=== PATIENT | male | born 1955 | race Caucasian/White ===

== ENCOUNTER 2020-03-22 11:27 | Outpatient (REF) | payer MEDICARE, SELFPAY ==
[2020-03-22 14:06] LABS: Estimated Average Glucose 111 mg/dL; Hemoglobin A1C 148.8295 umol/L; Hemoglobin A1c % 5.5 %
[2020-03-22 14:09] LABS: Alanine Aminotransferase 30 U/L (0-40); Albumin Level 4.3 g/dL (3.5-5.0); Alkaline Phosphatase 71 U/L (39-117); Anion Gap 12 (12-20); Aspartate Amino Transferase 43 U/L (5-37); Bilirubin Total 0.5 mg/dL (0.0-1.0); Blood Urea Nitrogen 17 mg/dL (9-16); Calcium 9.1 mg/dL (8.4-10.2); Carbon Dioxide 25 mmol/L (22-29); Chloride 105 mmol/L (96-108); Cholesterol 236 mg/dL; Estimated Glomerular Filt Rate > 60; Glucose Fasting 93 mg/dL (60-99); HDL Cholesterol 44 mg/dL; LDL Cholesterol Calculated 166 mg/dl; Potassium 4.5 mmol/L (3.3-5.1); Sodium 137 mmol/L (135-145); Total Protein 7.2 g/dL (6.5-8.0); Triglycerides 132 mg/dL
[2020-03-22 14:30] LABS: TSH reflex Free T4 0.87 uIU/mL (0.32-4.0)
[2020-03-25 13:28] LABS: Carbohydrate Antigen 19-9 4 U/mL (<34)
== END 2020-03-22 11:28 | disposition home or self-care (01) ==
LOC: HO.LAB 11:27
PROVIDERS: Visit Provider Physician Assistant
DX: E78.2 Mixed hyperlipidemia (principal); Z13.1 Encounter for screening for diabetes mellitus; Z12.5 Encounter for screening for malignant neoplasm of prostate; Z80.0 Family history of malignant neoplasm of digestive organs
CPT/HCPCS: 36415; 80053; 80061; 83036; 84153; 84443; 86301

== ENCOUNTER → 2020-05-14 08:38 | Outpatient (BNVA) | payer MEDICARE, SELFPAY | PROVIDERS: PCP Physician Assistant; Visit Provider Nurse Practitioner | DX: Z01.818 Encounter for other preprocedural examination (principal); Z86.010 Personal history of colon polyps | CPT/HCPCS: Q3014 ==

== ENCOUNTER 2020-10-22 09:33 | Day surgery (SDC) | payer MEDICARE, SELFPAY ==
--- NOTE | 2020-10-18 13:32 | HO.ANESPROP2 ---
Documented by User: Yvonne Ruelas NP 10/18/20 13:33 HPI - Anesthesia Eval Consult details Narrative: 65yo M for Colonoscopy PMFSH Active Problems Active Problems: All Active Problems (Updated 10/15/20 @ 14:58 by Prachi Sánchez, [place]) Annual physical exam (Acute) HLD (hyperlipidemia) (Acute) Screening for diabetes mellitus (DM) (Acute) Colon cancer screening (Acute) Former smoker (Acute) Family history of pancreatic cancer (Acute) History of colon polyps (Acute) Annual physical exam (Acute) Allergic asthma (Acute) Obese (Acute) Past Medical History Medical History Hyperlipidemia Mild intermittent asthma Family History Family History Father Heart problem, Onset Age: 65 Mother Diabetes Sister Pancreatic cancer Brother Pancreatic cancer Surgical History Surgical History Hx of colonoscopy (~2000) Hx of endoscopy (~2000) [place] teeth extracted Social History Social History Housing: House Alcohol intake: former Patient Tobacco Use Status: Never used Tobacco e-Cigarette/Vaping Use: Never Used Second Hand Smoke Exposure: No Use of substances other than those prescribed or required for medical reasons: Yes Substance Use Type: Marijuana Have you been hit, kicked, punched, or otherwise hurt by someone within the past year? 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 Meds Allergies Allergy/AdvReac Type Severity Reaction Status Date / Time nut - unspecified Allergy Severe Anaphylaxis Verified 09/19/20 14:14 Penicillins Allergy Severe Unknown Verified 09/19/20 14:14 Exam Exam Date and Time: October 18, 2020 1332 Assessment and Plan Assessment Anesthesia Assessment: Chart Reviewed Documented by User: Mary Alvarze MD 10/22/20 11:32 PMFSH Past Medical History Medical History Hyperlipidemia Mild intermittent asthma Family History Family History Father Heart problem, Onset Age: 65 Mother Diabetes Sister Pancreatic cancer Brother Pancreatic cancer Surgical History Surgical History Hx of colonoscopy (~2000) Hx of endoscopy (~2000) [place] teeth extracted History of Problems with Anesthesia: No Social History Social History Housing: House Alcohol intake: former Patient Tobacco Use Status: Never used Tobacco e-Cigarette/Vaping Use: Never Used Second Hand Smoke Exposure: No Use of substances other than those prescribed or required for medical reasons: Yes Substance Use Type: Marijuana Have you been hit, kicked, punched, or otherwise hurt by someone within the past year? 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 Meds Allergies Allergy/AdvReac Type Severity Reaction Status Date / Time nut - unspecified Allergy Severe Anaphylaxis Verified 09/19/20 14:14 Penicillins Allergy Severe Unknown Verified 09/19/20 14:14 Exam Airway Mallampati Class: II TM Dist: >3cm Neck ROM: Full Loose/Missing/Broken Teeth: No Heart: RRR Lungs: CTA Assessment and Plan Assessment Anesthesia Assessment: Anesthesia Plan Discussed Final Anesthetic Review History of Problems with Anesthesia: No NPO: Yes ASA Class: II Final Preanesthetic Review: Meds/Allgs Chart Reviewed, Consent Obtained/Reviewed and Anes Risks/Benef Reviewed Patient Risk: Low Procedure Risk: Low Anesthetic Plan Anesthetic Plan: MAC: Disposition: Standard PACU
--- NOTE | 2020-10-22 | ECG_ITS ---
Test Reason : PRE OP Blood Pressure : / mmHG Vent. Rate : 066 BPM Atrial Rate : 066 BPM P-R Int : 204 ms QRS Dur : 156 ms QT Int : 470 ms P-R-T Axes : 071 013 066 degrees QTc Int : 492 ms Normal sinus rhythm Left bundle branch block Abnormal ECG No previous ECGs available Referred By: Mary Alvarez Electronically Signed By:LATRICIA NICOLE
--- NOTE | 2020-10-22 11:00 | P.HPSUR_ITS ---
Pre-Procedural Eval Section A Date of Service: 10/22/20 The patient is an INPATIENT: No The History & Physical has been completed within 30 days and I have reviewed it.: No Section B Chief Complaint: Screening Details of Present Illness: colon cancer screening, hx of colon polyps Relevant Family History (Specify if Yes): Yes Relevant Social History: Tobacco Use (former smoker) Present Medications: see Short Stay Collaborative assessment Medical History: Significant History (Hyperlipidemia) History of Previous Operations: Relevant previous surgery/procedure and date(s) (Hx of colonoscopy (~2000) Hx of endoscopy (~2000) [place] teeth extracted) Allergies: Allergies Allergy/AdvReac Type Severity Reaction Status Date / Time nut - unspecified Allergy Severe Anaphylaxis Verified 09/19/20 14:14 Penicillins Allergy Severe Unknown Verified 09/19/20 14:14 Review of Systems Sugical H&P ROS: Negative: Constitution, Cardiovascular, Respiratory and Gastrointestinal Exam Surgical H&P Exam: Normal: Heart, Normal: Lungs, Normal: Extremities and Normal: Abdomen Plan Diagnosis/Plan: Unchanged I have reviewed the history and physical and performed a pertinent physical examination on my patient. No changes have occurred unless specified.
--- NOTE | 2020-10-22 11:01 | PM.OP ---
Brief Operative Note Date of Service: 10/22/20 Pre-op diagnosis: Colon cancer screening, history of colon polyps Post-op diagnosis: other (Colon polyps, diverticulosis, hemorrhoids) Procedure: COLONOSCOPY TILL CECUM WITH SNARE POLYPECTOMY Consent: Indications for the procedure and potential complications of bleeding, perforation, reaction to medications and missed diagnosis were discussed with the patient and informed consent was obtained. Instrument: Olympus PCF H 190 L variable stiffness pediatric colonoscope Monitoring: Vital signs and clinical assessment, intermittent blood pressure monitoring, continuous EKG monitoring, Pulse oximetry and Carbon Dioxide monitoring were done throughout the procedure. Colon withdrawl time was 22 minutes. Procedure: The patient was placed in the left lateral decubitis position and pre-procedure medications were administered. After a digital rectal examination of the ano-rectum, the video colonoscope was inserted into the rectum and advanced through the colon to the cecum. The colonoscope was slowly withdrawn in a retrograde panoramic fashion and the colon mucosa was carefully examined including a retroflexed view of the rectum. Findings and interventions are described below. Procedure Difficulty: Without difficulty Findings: Terminal Ileum: Not evaluated Cecum: Normal Ascending Colon: A 9-10 mm sessile polyp removed with a cold snare - polyp was not retrieved Transverse Colon: A 12-15 mm sessile polyp removed with a hot snare. Descending Colon: Moderate diverticulosis Sigmoid Colon: A 10-12 mm sessile polyp removed with a hot snare. Severe diverticulosis with luminal narrowing Rectum: Normal Ano-rectum: Small internal hemorrhoids Colon preparation: Good Impression and Post Procedure Diagnosis: Colonoscopy Findings: Three medium sized polyps removed - 1 polyp was not retrieved Moderate to severe diverticulosis seen in the left colon Small hemorrhoids on retroflexed exam. Plan: Await pathology results Patient has an appointment on 11/12/20 in the [facility] with Cynthia Murray NP . Repeat Colonoscopy interval based on path results - in 3 years if polyps are adenomatous and 5 years if polyps are hyperplastic due to hx of colon polyps. Above findings were reviewed with the patient and colon polyps and diverticulosis handouts were given in the discharge area Surgeon: Margy Carvajal MD Anesthesia: MAC (Aubrey aVldez PROGRAM DEVELOPMENT MANAGER & Marianne Andrade CRNA) Was an Search Specialist used for this Procedure?: Yes Search Specialist: Vicenta Berry Estimated blood loss (mL): 0 Pathology: other (a. transverse colon polyp b. sigmoid colon polyp) Condition: stable Disposition: PACU
[2020-10-22 11:02] VITALS: BP 130/72; PULSE 66; RESP 18; TEMP 36.6; O2SAT 98; BMI 28.7
[2020-10-22] MEDS: Lactated Ringers 1,000 ML 100 ML IVCONT (11:16)
--- NOTE | 2020-10-22 11:57 | P.OP_ITS ---
Operative Note Operative Note Date of Service: 10/22/20 Narrative: Pre-op diagnosis:?Colon cancer screening, history of colon polyps Post-op diagnosis:?other (Colon polyps, diverticulosis, hemorrhoids) Procedure:? COLONOSCOPY TILL CECUM WITH SNARE POLYPECTOMY Consent: Indications for the procedure and potential complications of bleeding, perforation, reaction to medications and missed diagnosis were discussed with the patient and informed consent was obtained. Instrument: Olympus PCF H 190 L variable stiffness pediatric colonoscope Monitoring: Vital signs and clinical assessment, intermittent blood pressure monitoring, continuous EKG monitoring, Pulse oximetry and Carbon Dioxide monitoring were done throughout the procedure. Colon withdrawl time was 22 minutes. Procedure: The patient was placed in the left lateral decubitis position and pre-procedure medications were administered. After a digital rectal examination of the ano-rectum, the video colonoscope was inserted into the rectum and advanced through the colon to the cecum. The colonoscope was slowly withdrawn in a retrograde panoramic fashion and the colon mucosa was carefully examined including a retroflexed view of the rectum. Findings and interventions are described below. Procedure Difficulty: Without difficulty Findings: Terminal Ileum: Not evaluated Cecum:? Normal Ascending Colon:? A 9-10 mm sessile polyp removed with a cold snare - polyp was not retrieved Transverse Colon:? A 12-15 mm sessile polyp removed with a hot snare. Descending Colon:? Moderate diverticulosis Sigmoid Colon:? A 10-12 mm sessile polyp removed with a hot snare. Severe diverticulosis with luminal narrowing Rectum:? Normal Ano-rectum:? Small internal hemorrhoids Colon preparation:? Good? Impression and Post Procedure Diagnosis: Colonoscopy Findings: Three medium sized polyps removed - 1 polyp was not retrieved Moderate to severe diverticulosis seen in the left colon Small hemorrhoids on retroflexed exam. Plan: Await pathology results Patient has an appointment on 11/12/20 in the GI Clinic with? Cynthia Murray NP? . Repeat Colonoscopy interval based on path results - in 3 years if polyps are adenomatous and 5 years if polyps are hyperplastic due to hx of colon polyps. Above findings were reviewed with the patient and colon polyps and diverticulosis handouts were given in the discharge area Surgeon:?Margy Carvajal MD Anesthesia:?MAC (Aubrey Valdez CRNA & Marianne Andrade CRNA) Was an Fitness Management Director used for this Procedure?:?Yes Fitness Management Director:?Vicenta Berry Estimated blood loss (mL):?0 Pathology:?other (a. transverse colon polyp? b. sigmoid colon polyp) Condition:?stable Disposition:?PACU
[2020-10-22 12:41] VITALS: BP 98/56; PULSE 75; RESP 18; TEMP 36.1; O2SAT 100
[2020-10-22 12:56] VITALS: BP 119/68; PULSE 70; RESP 18; TEMP 36.1; O2SAT 99
== END 2020-10-22 13:30 | disposition home or self-care (01) ==
PROVIDERS: PCP Physician Assistant; Visit Provider Internal Medicine Gastroenterology
PROC: 0DJD8ZZ Inspection of Lower Intestinal Tract, Via Natural or Artificial Opening Endoscopic (ICD-10-PCS; CPT 45378; principal; 2020-10-22 11:30)
DX: Z12.11 Encounter for screening for malignant neoplasm of colon (principal); D12.3 Benign neoplasm of transverse colon; D12.5 Benign neoplasm of sigmoid colon; K57.30 Diverticulosis of large intestine without perforation or abscess without bleeding; K64.8 Other hemorrhoids; Z86.010 Personal history of colon polyps
CPT/HCPCS: 45385; 88305; 93005

== ENCOUNTER → 2020-11-12 08:43 | Outpatient (BNVA) | payer MEDICARE, SELFPAY | PROVIDERS: PCP Physician Assistant; Visit Provider Nurse Practitioner | DX: D12.6 Benign neoplasm of colon, unspecified (principal) | CPT/HCPCS: Q3014 ==

== ENCOUNTER 2021-03-24 10:43 | Outpatient (REF) | payer MEDICARE, SELFPAY ==
[2021-03-24 11:48] LABS: Hematocrit 41.9 % (42.0-52.0); Hemoglobin 14.3 g/dl (14.0-18.0); Mean Corpuscular HGB Conc 34.1 g/dl (31.0-36.0); Mean Corpuscular Hemoglobin 30.6 pg (27.0-33.0); Mean Corpuscular Volume 89.7 fL (80.0-98.0); Mean Platelet Volume 10.2 fL (9.4-12.4); Platelet Count 243 X10*3/uL (160-400); Red Blood Count 4.67 X10*6/uL (4.60-5.80); Red Cell Distribution Width 12.1 % (11.0-16.0); White Blood Count 6.2 X10*3/uL (4.8-10.8)
[2021-03-24 13:01] LABS: Alanine Aminotransferase 33 U/L (0-40); Albumin Level 4.2 g/dL (3.5-5.0); Alkaline Phosphatase 76 U/L (39-117); Anion Gap 13 (12-20); Aspartate Amino Transferase 51 U/L (5-37); Bilirubin Total 0.9 mg/dL (0.0-1.0); Blood Urea Nitrogen 17 mg/dL (9-16); Calcium 9.4 mg/dL (8.4-10.2); Carbon Dioxide 21 mmol/L (22-29); Chloride 110 mmol/L (96-108); Cholesterol 138 mg/dL; Estimated Glomerular Filt Rate > 60; Glucose Fasting 106 mg/dL (60-99); HDL Cholesterol 38 mg/dL; LDL Cholesterol Calculated 86 mg/dl; Potassium 4.5 mmol/L (3.3-5.1); Sodium 139 mmol/L (135-145); Triglycerides 71 mg/dL
[2021-03-24 13:20] LABS: Prostate Specific Antigen Scr 1.16 ng/mL (<0.05-4.0); TSH reflex Free T4 1.03 uIU/mL (0.32-4.0)
== END 2021-03-24 10:44 | disposition home or self-care (01) ==
LOC: HO.LAB 10:43
PROVIDERS: PCP Physician Assistant; Visit Provider Physician Assistant
DX: Z12.5 Encounter for screening for malignant neoplasm of prostate (principal); E78.2 Mixed hyperlipidemia; I10 Essential (primary) hypertension
CPT/HCPCS: 36415; 80053; 80061; 84153; 84443; 85027

== ENCOUNTER 2022-11-04 10:08 | Outpatient (REF) | payer MEDICARE, SELFPAY ==
[2022-11-04 10:30] LABS: Hematocrit 41.9 % (42.0-52.0); Hemoglobin 14.5 g/dl (14.0-18.0); Mean Corpuscular HGB Conc 34.6 g/dl (31.0-36.0); Mean Corpuscular Hemoglobin 30.8 pg (27.0-33.0); Mean Platelet Volume 9.2 fL (9.4-12.4); Platelet Count 238 X10*3/uL (160-400); Red Blood Count 4.71 X10*6/uL (4.60-5.80); Red Cell Distribution Width 12.4 % (11.0-16.0); White Blood Count 6.3 X10*3/uL (4.8-10.8)
[2022-11-04 11:30] LABS: Alanine Aminotransferase 23 U/L (0-40); Albumin Level 4.2 g/dL (3.5-5.0); Alkaline Phosphatase 86 U/L (39-117); Anion Gap 13 (12-20); Aspartate Amino Transferase 41 U/L (5-37); Bilirubin Total 0.6 mg/dL (0.0-1.0); Blood Urea Nitrogen 15 mg/dL (9-16); Calcium 9.4 mg/dL (8.4-10.2); Carbon Dioxide 24 mmol/L (22-29); Chloride 108 mmol/L (96-108); Cholesterol 128 mg/dL (<200); Estimated Glomerular Filt Rate > 60; Glucose Fasting 116 mg/dL (60-99); HDL Cholesterol 45 mg/dL (>40); LDL Cholesterol Calculated 71 mg/dL (<100); Potassium 4.5 mmol/L (3.3-5.1); Sodium 140 mmol/L (135-145); Total Protein 7.1 g/dL (6.5-8.0); Triglycerides 60 mg/dL (<150)
[2022-11-04 11:39] LABS: Prostate Specific Antigen Scr 1.56 ng/mL (<0.05-4.0)
== END 2022-11-04 10:09 | disposition home or self-care (01) ==
LOC: HO.LAB 10:08
PROVIDERS: PCP Physician Assistant; Visit Provider Physician Assistant
DX: Z12.5 Encounter for screening for malignant neoplasm of prostate (principal); E78.2 Mixed hyperlipidemia
CPT/HCPCS: 36415; 80053; 80061; 84153; 85027

== ENCOUNTER 2022-11-10 10:34 | Outpatient (AMB) | payer MEDICARE, SELFPAY ==
--- NOTE | 2022-11-10 10:35 | MHC.PC.OV ---
Vital Signs 11/10/22 10:39 Height 5 ft 10 in Weight 211 lb BMI 30.3 BP 124/72 Blood Pressure Location Lt brachial Position Sitting Respiration 17 Pulse 70 Pulse Source Pulse Oximeter Pulse Oximetry (%) 98 Oxygen Delivery Method Room Air Intake Visit Reasons: PE Intake Note: Patient is here today for a physical. Business Development Officer Required: No Accompanied by: Self / Same As Patient Allergies nut - unspecified Allergy (Severe, Verified 11/10/22 10:59) Anaphylaxis Penicillins Allergy (Severe, Verified 11/10/22 10:59) Unknown Medication List - Last Reconciled 11/10/22 by Anthony Mercado PA-C albuterol sulfate 90 mcg/actuation 2 puffs inhalation Q6H PRN atorvastatin 40 mg PO DAILY 90 days Tobacco use date assessed: 11/10/22 HPI PE HPI Details Patient is a 67-year-old male here today for annual physical Patient has a past medical history significant for former smoker ( 16 years) quite in 1988, hyperlipidemia and is on statin therapy. Had myalgias with 80mg? atorvastatin though this reduced to when he reduced his dose to 40 mg. Concerns--> reports having chest dyscomforts at rest. He does report some relief after he uses the restroom. He reports he has been under lot more stress as of late as he is taking care of his elderly sick mother. He relates his chest discomfort to his diverticular disease as he does report some relief of his chest discomforts at 3 goes to the bathroom. .. HLD:? Patient's most l recent lipid panel showing much improved lipid.? Has been unable to tolerate statin higher than 40 mg.? Will continue to follow lipid panel.? He will continue to work on lifestyle and the current dose of atorvastatin 40 mg. ?tubular adenoma of colon:? did colonoscopy in 2020 found to have tubular adenoma polyp need repeat 3 years. Has family history of GI malignancy (pancreatic cancer). Patient's CA 19 9 was not elevated in 2020 .. VAccine: UTd with COVID vaccine, pneumonia, tetanus and shingles vaccine. He is considering new shingles vaccine Laboratory Tests 03/24/21 11/04/22 11/04/22 Unknown 10:17 10:17 Fasting Glucose 106 H 116 H LDL Cholesterol, C alc 71 PFSH Medical History Mild intermittent asthma Hyperlipidemia Surgical History Hx of endoscopy (~2000) Hx of colonoscopy (~2000) [place] teeth extracted Family History Father Heart problem, Onset Age: 65 Mother Diabetes Sister Pancreatic cancer Brother Pancreatic cancer Social History Housing: House Alcohol intake: former Patient Tobacco Use Status: Never used Tobacco e-Cigarette/Vaping Use: Never Used Second Hand Smoke Exposure: No Substance Use Type: Marijuana service: No Current occupational status: retired 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 1. Little interest or pleasure in doing things: several days 2. Feeling down, depressed, or hopeless: several days 3. Trouble falling or staying asleep, or sleeping too much: more than half the days 4. Feeling tired or having little energy: more than half the days 5. Poor appetite or overeating: more than half the days 6. Feeling bad about yourself - or that you are a failure or have let yourself or your family down: more than half the days 7. Trouble concentrating on things, such as reading the newspaper or watching television: several days 8. Moving or speaking so slowly that other people could have noticed. Or the opposite - being so fidgety or restless that you have been moving around a lot more than usual: not at all 9. Thoughts that you would be better off or of hurting yourself in some way: not at all Total score: 11 41199 - PHQ-9 Billing: Yes Source: Developed by Drs. John Peters, Annia Esquivel, Wan Tobin and colleagues, with an educational nasir from [employer]. Thrive Questionnaire Date Thrive assessed: 11/10/22 I am a: Patient What is your living situation today?: I have a steady place to live Within the past 12 months, did the food you bought not last and you didn't have the money to get more?: Never true Within the past 12 months, did you worry whether your food would run out before you got money to buy more?: Never true Do you have trouble paying for medicines?: No Do you have trouble getting transportation to medical appointments?: No Do you have trouble paying your heating and electricity bill?: No Do you have trouble taking care of your child, family member or friend?: No Do you have trouble with day-to-day activities such as bathing, preparing meals, shopping, managing finances, etc.?: No Are you currently unemployed and looking for a job?: No Are you interested in more education?: No Please select the resources that you would like help with: None Currently or been in a relationship where the following occur: no concerns reported AUDIT C Alcohol Use Questionnaire (AUDIT-C) 1. How often do you have a drink containing alcohol?: Never 3. How often do you have six or more drinks on one occasion?: Never Total Score: 0 TIMUR-7 AMB Questionnaire TIMUR-7 Date TIMUR - 7 assessed: 11/10/22 Feeling nervous, anxious, or on edge: 1 = Several days Not being able to stop or control worryin = Not at all Worrying too much about different things: 1 = Several days Trouble relaxin = Several days Being so restless that it is hard to sit still: 0 = Not at all Becoming easily annoyed or irritable: 1 = Several days Feeling afraid as if something awful might happen: 1 = Several days Total TIMUR-7 score (0-4 normal; 5-9 mild; 10-14 moderate; 15-21 severe): 5 Source: Developed by Drs. John Peters, Annia Esquivel, Wan Tobin and colleagues, with an educational nasir from [employer]. TIMUR-7 Assessment Billing TIMUR-7 Assessment Tool: TIMUR-7 Assessment 07302 Physical exam (Primary Care) Vital Signs: Last Vital Signs Pulse 70 11/10/22 10:39 Resp 17 11/10/22 10:39 BP 124/72 11/10/22 10:39 Pulse Ox 98 11/10/22 10:39 Oxygen Delivery Method Room Air 11/10/22 10:39 BMI result Body Mass Index 30.3 BMI Assessment/Plan discussion: High Tobacco/Smoking Status: Tobacco use Status Tobacco use date assessed 11/10/22 11/10/22 10:48 Patient Tobacco Use Status Never used Tobacco 11/10/22 10:37 e-Cigarette/Vaping Use Never Used 11/10/22 10:37 PHQ-9: PHQ-9 Score PHQ-9: Total score 11 11/10/22 11:08 Thrive Assessment: Date of Thrive Assessment Date Thrive assessed 11/10/22 11/10/22 10:48 Currently or been in a relationship where the following occur: no concerns reported Const Other: obese Assessment and Plan Assessment & Plan (1) Annual physical exam: Code(s): Z00.00 - Encounter for general adult medical examination without abnormal findings (2) HLD (hyperlipidemia): Code(s): E78.5 - Hyperlipidemia, unspecified Qualifiers: Hyperlipidemia type: mixed hyperlipidemia Qualified Code(s): E78.2 - Mixed hyperlipidemia Plan: Patient's most recent lipid panel showing excellent control over his total cholesterol and LDL. Will continue on current dose of statin therapy. Goal LDL is to remain below 130 (3) Chest discomfort: Code(s): R07.89 - Other chest pain Plan: As per HPI patient does report some chest tightness and pain on random occasions. Does report some shortness of breath on exertion lately will send for cardiac stress test to evaluate for cardiac ischemia on physical exertion. (4) Tubular adenoma of colon: Comment: 2020 scope 3 quite large repeat 3 years Code(s): D12.6 - Benign neoplasm of colon, unspecified (5) Obese: Code(s): E66.9 - Obesity, unspecified Qualifiers: Body mass index: BMI 30.0-30.9 Obesity classification: adult class 1 (BMI 30 - 34.9) Obesity type: due to excess calories Serious obesity comorbidity presence: without serious comorbidity Qualified Code(s): E66.09 - Other obesity due to excess calories; Z68.30 - Body mass index [BMI] 30.0-30.9, adult Plan: Patient does understand his BMI is over 30 will work on better eating habits and trying to be more physically active to reduce his weight. Orders: Orders CA stress test Today R07.89 - Other chest pain Comprehensive [place]. Panel Fast Today E78.2 - Mixed hyperlipidemia Lipid Panel Today E78.2 - Mixed hyperlipidemia Complete Blood Count no Diff Today E78.2 - Mixed hyperlipidemia Coding Level of Care Code Est Pt Prev Care >65y(63511) Diagnoses Annual physical exam Z00.00 Mixed hyperlipidemia E78.2 Hyperlipidemia type: mixed hyperlipidemia Chest discomfort R07.89 Tubular adenoma of colon D12.6 Class 1 obesity due to excess calories without serious comorbidity with body mass index (BMI) of 30.0 to 30.9 in adult E66.09; Z68.30 Body mass index: BMI 30.0-30.9 Obesity classification: adult class 1 (BMI 30 - 34.9) Obesity type: due to excess calories Serious obesity comorbidity presence: without serious comorbidity Additional Codes TIMUR-7 Assessment Billing - TIMUR-7 Assessment Tool: TIMUR-7 Assessment [id number] ([id number])
[2022-11-10 10:39] VITALS: BP 124/72; PULSE 70; RESP 17; O2SAT 98; BMI 30.3
== END 2022-11-10 11:28 | disposition home or self-care (01) ==
PROVIDERS: Visit Provider Physician Assistant
DX: R07.89 Other chest pain (principal); E66.09 Other obesity due to excess calories; Z68.30 Body mass index [BMI] 30.0-30.9, adult; E78.2 Mixed hyperlipidemia; D12.6 Benign neoplasm of colon, unspecified
CPT/HCPCS: 99214

== ENCOUNTER → 2022-11-26 09:46 | Outpatient (REF) | payer MEDICARE, SELFPAY | LOC: HO.CARD 09:46 | PROVIDERS: PCP Physician Assistant; Visit Provider Physician Assistant | DX: Z13.89 Encounter for screening for other disorder (principal) ==

== ENCOUNTER → 2023-01-14 07:50 | Outpatient (REF) | payer MEDICARE, SELFPAY ==
--- NOTE | ~2023-01-14 | NM_ITS ---
Myocardial perfusion study Indication: EKG to evaluate for myocardial ischemia Technique: The patient was brought in for a Lexiscan perfusion study on 01/14/2023. Patient performed low-level exercise and was injected 0.4 mg of Lexiscan intravenously. Within a minute of injection, 30 mCi of sestamibi was given intravenously. Images were obtained using the SPECT gamma camera interlaced with the gating device. Images were obtained in supine position. Resting perfusion study was performed on 01/18/2023. Patient was administered 30 mCi of sestamibi intravenously at rest. Images were then obtained in supine position. Images obtained with and without CT attenuation. Total DLP 90 mGy-cm. Images were processed with the software and compared side to side in short axis, horizontal long axis and vertical long axis views. Findings: Stress and rest perfusion studies were suboptimal due to intense subdiaphragmatic uptake interfering with inferior wall uptake The stress perfusion study showed non attenuated images show mildly to moderately reduced uptake in the inferior inferoseptal wall of the LV myocardium. Remainder of the LV myocardium is normally perfused. Attenuation corrected images are suboptimal due to diffusely reduced uptake related to subdiaphragmatic uptake. The gated study is suboptimal due to tracking of subdiaphragmatic activity. LV cavity is normal size. Resting study shows no change in perfusion pattern compared to stress perfusion study. Gating at rest reveals normal systolic wall motion with ejection fraction at 56%. The findings are consistent with overall suboptimal study to evaluate for inferior wall defect subdiaphragmatic activity. Anterior and lateral wall appeared to have normal perfusion with stress. NM/NM aaron perf SPECT rest & str Impression: 1. Myocardial perfusion imaging study shows suboptimal study related for evaluation of the inferior and septal wall 2. Gated LVEF is 56% at rest 3. Transient ischemic dilatation not seen EKG nondiagnostic for ischemia
--- NOTE | 2023-01-14 07:52 | CA_ITS ---
Acquisition Time: 2023-01-14 08:03:11 Total Exercise Time: 00:02:00 Test Indications: ABN EKG Medications: SEE H Protocol: LEXISCAN Max HR: 096 BPM 63% of Pred: 151 BPM Max BP: 140/072 mmHG Max Work Load: 1.0 METS Pharmacological stress test with Lexiscan injection, while sitting, without anginal symptoms, without arrythmia, with normotensive response to injection, with nondiagnostic EKG for ischemia. In recovery he became presyncopal which was treated with supine position, IV NS wide open. Lexiscan reversed with Aminophylline 75mg IVP. Symptoms resolved. He did not become hypotensive or bradycardic.He recieved 400 cc NS. He was recovered for over 15 minutes. Nuclear images pending. Test reviewed with Dr López. IV line in place. Assisted to nuclear medicine department for his images. Message sent to his PCP, requested order for echocardiogram. Referred By: Anthony Mercado Overread By: REY VIZCARRA
--- NOTE | 2023-01-14 09:34 | CA_ITS ---
Transthoracic Echocardiogram Patient (Last, First, Middle): Patricio Gale, Gender: Male Date of : 1955 Age: 67 Procedure Date: 01/14/2023 Procedure Type: Transthoracic Echocardiogram Location: OP Height: 177.8 cm Weight: 90.72 kg BSA: 2.09 m2 Heart Rate: 64 bpm BP: 140 / 85 mmHg Medical Record Librarians Teacher: FANTASMA De Oliveira MD: Anthony Mercado PA-C Model Maker Plastic: Dago López MD Symptoms: I51.7 - Cardiomegaly Study Quality: Adequate/w Contrast ECG Rhythm: Sinus Conclusions: - 1. Moderate LV systolic dysfunction with LVEF of 35-40% with impaired relaxation filling pattern 2. Normal cardiac valvular Dopplers 3. Upper limits of normal ascending aortic size 4. No gross pericardial effusion Findings Procedure Information Contrast agent, definity, is being given per protocol without apparent complications. Left Ventricle The left ventricular systolic function is moderately decreased. The visually estimated ejection fraction is between 35-40%. There is moderate global hypokinesis. There is paradoxical septal motion consistent with a left bundle branch block. Spectral Doppler is indicative of an impaired relaxation filling pattern. E/E prime ratio is between 8 and 15 consistent with indeterminate filling pressures. Right Ventricle Normal right ventricular cavity size and systolic function. Atria Both atria are normal in size. There is no evidence of interatrial shunt. Aortic Valve Normal aortic valve structure and function. There is no aortic valve stenosis. There is no aortic valve regurgitation. Mitral Valve Normal mitral valve structure and function. There is trace mitral valve regurgitation. There is no mitral valve stenosis. Pulmonic Valve The pulmonic valve is likely normal. Tricuspid Valve There is trace tricuspid valve regurgitation. Tricuspid regurgitation envelope is inadequate for calculation of right ventricular systolic pressure. Normal right atrial pressure. Great Vessels The pulmonary artery was not well visualized. Venous The inferior vena cava is normal in size and collapses greater than 50% with inspiration. Pericardium/Pleural There is no evidence of pericardial effusion. Prior Study Comparison No prior study available for comparison. Measurements 2D Linear Measurements IVSd: 1.05 0.6-0.9/0.6-1.0 cm LVIDd: 4.94 3.9-5.3/4.2-5.9 cm LVIDd Index: 2.36 2.4-3.2/2.2-3.1 cm/m2 LVIDs: 3.53 2.0-3.6 cm LVPWd: 1.08 0.7-1.1 cm LA Diam: 2.90 2.7-3.8/3.0-4.0 cm LAIDs Index: 1.39 1.5-2.3 cm/m2 LV Mass: 242.15 67-162/88-224 g LV Mass Index: 115.86 43-95/49-115 g/m2 LVOT Diam: 1.90 3.0+(-)1.3 cm 2D Systolic Function EF 4C: 36.50 >55% EF 2C: 40.80 >55% EF BiP: 38.90 >55% Mitral Valve MV Pk E: 0.69 MV PK A: 0.86 MV Decel Time: 155.00 E/A: 0.80 E'Lateral: 8.16 E'Medial: 4.57 E/E' Med: 15.20 E/E' Lat: 8.50 PHT: 45.00 MVA PHT: 4.89 Decel [place]: 4.48 Aortic Valve AoV Pk El: 1.65 AoV Mn El: 1.11 AoV VTI: 0.35 AoV Pk Grad: 11.00 Aov Mn Grad: 6.00 HORTENSIA Cont.VTI: 2.14 LVOT LVOT Pk El: 1.36 LVOT Mn El: 0.89 LVOT VTI: 0.27 LVOT Pk Grad: 7.00 LVOT Mn Grad: 4.00 LVOT Diam: 1.90 LVOT Area: 2.84 Diastolic Function MV Pk E: 0.69 MV Pk A: 0.86 E/A: 0.80 E'Medial: 4.57 E/E' Med: 15.20 E' Laterial: 8.16 E/E' Lat: 8.50 Right Ventricle TAPSE (mm): 23.80 TVS' El: 11.70 Tricuspid Valve TR Pk El: 1.14 TR Pk Grad: 5.00 RA Press: 3.00 RVSP: 8.00 Great Vessels Aorta Sinus of Valsalva: 3.80 2.0-3.5 cm Ao Asc: 3.60 2.1-3.4 cm Pulmonary Valve PV Pk El: 1.18 Peak PV Grad: 6.00 Updated in Other Vendor System with Status of Final Dago López MD electronically signed on 01/14/2023 11:09:10 AM with status of Final
== END ==
LOC: HO.CARD 07:50
PROVIDERS: PCP Physician Assistant; Visit Provider Physician Assistant
DX: R07.89 Other chest pain (principal); I51.7 Cardiomegaly; R55 Syncope and collapse
CPT/HCPCS: 78452; 93017; 93306; A9500; J0280; J2785; Q9957

== ENCOUNTER → 2023-01-14 09:34 | Outpatient (BNV) | payer MEDICARE, SELFPAY | PROVIDERS: PCP Physician Assistant; Visit Provider Internal Medicine Cardiovascular Disease | DX: I51.7 Cardiomegaly (principal); R94.31 Abnormal electrocardiogram [ECG] [EKG] | CPT/HCPCS: 78452; 93016; 93018; 93306 ==

== ENCOUNTER 2023-01-19 13:24 | Outpatient (AMB) | payer MEDICARE, SELFPAY ==
[2023-01-19 13:33] VITALS: BP 120/70; PULSE 77; BMI 30.2
--- NOTE | 2023-01-19 13:33 | MHC.OFFVIS ---
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 He had a recent echocardiogram and stress test which were abnormal and hence he has been referred here. Patient denies any history of coronary disease or myocardial infarction or cardiomyopathy or in fact any other cardiac issues in the past. He states he generally healthy without any major limitations. Both his brother as well as sister have been diagnosed with pancreatic cancer recently and that had given him a lot of stress. He states he used to live in [place] but then had to move locally. 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 He feels at nonspecific sensation of chest tightness but this is present essentially all the time. Not exertion. Even now, sitting in the office he states he feels that. However, when he does things like mowing his lawn he states he is okay. Sometimes he feels as though he gets asthma attacks causing shortness of breath. However, no consistent pattern of shortness of breath with exertion. 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 Cognitive needs: No Hearing needs: No Vision needs: No Review of Systems Const Denies chills, Denies daytime sleepiness, Denies fatigue, Denies fever(s), Denies frequent falls, Denies night sweats, Denies snoring, Denies weakness, Denies weight gain and Denies weight loss Eyes Denies loss of vision ENT Denies dizziness and Denies hearing loss Card Denies chest pain with activity, Denies syncope, Denies edema, Denies claudication, Denies leg edema, Denies lightheadedness, Denies palpitations, Denies dyspnea and Denies orthopnea Resp Denies cough, Denies excessive phlegm production, Denies dyspnea, Denies snoring and Denies wheezing GI Denies abdominal pain, Denies hematochezia, Denies change in bowel habits, Denies change in stool character, Denies heartburn, Denies nausea and Denies vomiting Denies hematuria, Denies dysuria and Denies urinary frequency Musc Denies arthralgias, Denies muscle weakness, Denies numbness and Denies tingling Skin/Breast Denies nail changes and Denies rash Neuro Denies Abnormal speech present, Denies dizziness, Denies syncope, Denies frequent falls, Denies loss of vision, Denies memory loss, Denies numbness, Denies tingling and Denies weakness Psych Denies depression and Denies memory loss Endo Denies fatigue and Denies palpitations Aller/Immun Denies wheezing Physical Exam Vital Signs: Last Vital Signs Pulse 77 01/19/23 13:33 BP 120/70 01/19/23 13:33 BMI result Body Mass Index 30.2 Const General: comfortable and no acute distress Orientation/consciousness: patient oriented x3 HEENT Other: Unremarkable Head: Yes normal to inspection Neck Neck: Yes normal visual inspection Chest Chest palpation & inspection: normal inspection of the chest Resp Auscultation: clear to auscultation bilaterally Cardio Palpation: normal PMI Heart sounds: S1 normal heart sound present, S2 normal heart sound present, no gallops, no murmurs and no rubs GI Palpation (GI): Soft to palpation Back/Spine/Pelvis Other: unremarkable Skin General skin exam: no rashes or lesions noted Neuro General: patient oriented x3 Speech: No Abnormal speech present Extrem General: Yes normal to inspection Psych Mental Status: mental status grossly normal Office Procedures EKG Details: EKG with sinus rhythm with left bundle-branch block pattern at 77/Min. [id number], Complete Assessment & Plan Assessment & Plan (1) Cardiomyopathy: Code(s): I42.9 - Cardiomyopathy, unspecified (2) LBBB (left bundle branch block): Code(s): I44.7 - Left bundle-branch block, unspecified Plan Today's EKG shows sinus rhythm with left bundle-branch block pattern. A prior EKG from 2020 also shows the left bundle-branch block pattern. Hence actual time of onset is not clear. Could be chronic but we do not have any previous EKGs prior 2020. Echocardiogram with moderate LV systolic dysfunction with LVEF of 35-40%. Otherwise unremarkable. In the stress perfusion imaging study, somewhat suboptimal. Anterior/lateral wall thought to be normal but inferior/septal wall could not be assessed adequately. Findings were discussed with patient in great detail. Show him picture charts as well and explained. Clinically, he has got clear heart failure symptoms or signs. The vague chest tightness which is nonexertional is nonspecific. Recommend getting a coronary CTA to ensure there is no hemodynamically significant CAD as his stress test is suboptimal. Otherwise, no need for diuretics as there is no volume overload. Could consider Coreg/Entresto after CTA but he does run normal to lowish blood pressures. Will follow-up after testing. Orders: Orders B Type Natriuretic Peptide Today I42.9 - Cardiomyopathy, unspecified, I50.9 - Heart failure, unspecified CT Cardiac Coronary Angio Today I25.10 - Atherosclerotic heart disease of [place] coronary artery without angina pectoris, I42.9 - Cardiomyopathy, unspecified Basic Metabolic Panel Today I42.9 - Cardiomyopathy, unspecified, I50.22 - Chronic systolic (congestive) heart failure Coding Level of Care Code New Pt Level 4 (21727) Diagnoses Cardiomyopathy I42.9 LBBB (left bundle branch block) I44.7 CPT Codes EKG - CPT: 51584-[id number], Complete ([id number])
== END 2023-01-19 14:28 | disposition home or self-care (01) ==
PROVIDERS: PCP Physician Assistant; Visit Provider Internal Medicine
DX: I42.9 Cardiomyopathy, unspecified (principal); I44.7 Left bundle-branch block, unspecified
CPT/HCPCS: 93010; 99204

== ENCOUNTER → 2023-01-19 13:24 | Outpatient (BNVA) | payer MEDICARE, SELFPAY | PROVIDERS: PCP Physician Assistant; Visit Provider Internal Medicine | DX: I42.9 Cardiomyopathy, unspecified (principal); I44.7 Left bundle-branch block, unspecified | CPT/HCPCS: 93005; 99202 ==

== ENCOUNTER 2023-01-27 11:15 | Outpatient (REF) | payer MEDICARE, SELFPAY ==
[2023-01-27 12:35] LABS: B Type Natriuretic Peptide 15 pg/mL (<100)
[2023-01-27 12:45] LABS: Anion Gap 12 (12-20); Blood Urea Nitrogen 15 mg/dL (9-16); Calcium 9.7 mg/dL (8.4-10.2); Carbon Dioxide 27 mmol/L (22-29); Chloride 106 mmol/L (96-108); Estimated Glomerular Filt Rate > 60; Glucose Random 94 mg/dL (60-115); Potassium 4.1 mmol/L (3.3-5.1); Sodium 141 mmol/L (135-145)
== END 2023-01-27 11:16 | disposition home or self-care (01) ==
LOC: HO.LAB 11:15
PROVIDERS: PCP Physician Assistant; Visit Provider Internal Medicine
DX: I50.22 Chronic systolic (congestive) heart failure (principal); I42.9 Cardiomyopathy, unspecified
CPT/HCPCS: 36415; 80048; 83880

== ENCOUNTER 2023-05-03 13:00 | Outpatient (AMB) | payer MEDICARE, SELFPAY ==
--- NOTE | 2023-05-03 13:07 | A.OFFVIS_ITS ---
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 Recently seen in consultation regarding cardiomyopathy. He had a recent echocardiogram and stress test which were abnormal and hence he has been referred here. Patient denies any history of coronary disease or myocardial infarction or cardiomyopathy or in fact any other cardiac issues in the past. He states he generally healthy without any major limitations. Both his brother as well as sister had pancreatic cancer and passed and that gave him a lot of stress. He used to be in [place] but now he lives locally. Was apparently lower for most of his life but not anymore. Retired. He was getting some vague chest tightness in the past but nonexertional but today he states he feels fine. Sometimes he feels as though he gets asthma attacks causing shortness of breath. Overall, no new cardiac concerns since last seen. He is underwent coronary CTA. [facility] Medical History (Updated 05/03/23 @ 14:59 by Chicho Carlos MD) Atherosclerotic cardiovascular disease Mild intermittent asthma Hyperlipidemia Surgical History Hx of endoscopy (~2000) Hx of colonoscopy (~2000) [place] teeth extracted Family History Father Heart problem, Onset Age: 65 Mother Diabetes Sister Pancreatic cancer Brother Pancreatic cancer Social History Housing: House Alcohol intake: former Patient Tobacco Use Status: Never used Tobacco e-Cigarette/Vaping Use: Never Used Second Hand Smoke Exposure: No Substance Use Type: Marijuana service: No Current occupational status: retired 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 Cognitive needs: No Hearing needs: No Vision needs: No Review of Systems Const Denies weakness ENT Denies dizziness Card Denies chest pain, Denies chest pain with activity, Denies syncope, Denies rapid heart rate, Denies pedal edema, Denies edema, Denies leg edema, Denies lightheadedness, Denies palpitations, Denies dyspnea, Denies dyspnea on exertion and Denies orthopnea Resp Denies cough, Denies dyspnea and Denies dyspnea on exertion GI Denies hematochezia and Denies change in stool character Musc Denies abnormal gait, Denies muscle cramps, Denies muscle weakness, Denies numbness, Denies radiating pain into limb and Denies tingling Neuro Denies abnormal gait, Denies dizziness, Denies syncope, Denies numbness, Denies tingling and Denies weakness Endo Denies palpitations Physical Exam Vital Signs: Last Vital Signs Pulse 78 05/03/23 13:10 BP 120/66 05/03/23 13:10 BMI result Body Mass Index 30.1 Const General: comfortable and no acute distress Orientation/consciousness: patient oriented x3 HEENT Other: Unremarkable Head: Yes normal to inspection Neck Neck: Yes normal visual inspection Chest Chest palpation & inspection: normal inspection of the chest Resp Auscultation: clear to auscultation bilaterally Cardio Palpation: normal PMI Heart sounds: S1 normal heart sound present, S2 normal heart sound present, no gallops, no murmurs and no rubs GI Palpation (GI): Soft to palpation Back/Spine/Pelvis Other: unremarkable Skin General skin exam: no rashes or lesions noted Neuro General: patient oriented x3 Extrem General: Yes normal to inspection Psych Mental Status: mental status grossly normal Assessment & Plan Assessment & Plan (1) Cardiomyopathy: Code(s): I42.9 - Cardiomyopathy, unspecified (2) LBBB (left bundle branch block): Code(s): I44.7 - Left bundle-branch block, unspecified (3) Atherosclerotic cardiovascular disease: Code(s): I25.10 - Atherosclerotic heart disease of [place] coronary artery without angina pectoris Plan Recent EKG shows sinus rhythm with left bundle-branch block pattern. A prior EK G from 2020 also shows the left bundle-branch block pattern. Hence actual time of onset is not clear. Could be chronic but we do not have any previous EKGs prior 2020. Echocardiogram with moderate LV systolic dysfunction with LVEF of 35-40%. Otherwise unremarkable. In the stress perfusion imaging study, somewhat suboptimal. Anterior/lateral wall thought to be normal but inferior/septal wall could not be assessed adequately. Coronary calcium score showed a total score of 656. Majority in the LAD. Some left main/RCA. In the CTA, distal left main/proximal LAD calcification but less than 40% stenosis. FFR is also negative. Otherwise unremarkable. Overall, he has left bundle-branch block, cardiomyopathy, coronary disease. We discussed this in great detail. With regard to the cardiomyopathy itself, no heart failure symptoms or signs. Blood pressure is already on the lower side. May not be able to tolerate much of meds but we can try low-dose Entresto. If he can take it then check labs in a few days after that. He agrees. With regard to the coronary disease, he is already on statins. He states he can not take higher dose as he gets aches and pains. Hence try adding Zetia. Follow-up in 6 months with another echocardiogram. Orders: Orders CA echo transthoracic complete 6 Months I42.9 - Cardiomyopathy, unspecified Basic Metabolic Panel 2 Weeks I42.9 - Cardiomyopathy, unspecified Medications: New ezetimibe (Zetia) 10 mg PO DAILY 90 tabs 3RF sacubitril-valsartan 24-26 mg (Entresto) 1 tab PO BID 90 days 180 tabs 3RF I42.9 - Cardiomyopathy, unspecified Coding Level of Care Code Est Pt Level 4 (44063) Diagnoses Cardiomyopathy I42.9 LBBB (left bundle branch block) I44.7 Atherosclerotic cardiovascular disease I25.10
[2023-05-03 13:10] VITALS: BP 120/66; PULSE 78; BMI 30.1
== END 2023-05-03 13:46 | disposition home or self-care (01) ==
PROVIDERS: PCP Physician Assistant; Visit Provider Internal Medicine
DX: I42.9 Cardiomyopathy, unspecified (principal); I44.7 Left bundle-branch block, unspecified; I25.10 Atherosclerotic heart disease of native coronary artery without angina pectoris
CPT/HCPCS: 99214

== ENCOUNTER → 2023-05-03 13:00 | Outpatient (BNVA) | payer MEDICARE, SELFPAY | PROVIDERS: PCP Physician Assistant; Visit Provider Internal Medicine | DX: I42.9 Cardiomyopathy, unspecified (principal); I44.7 Left bundle-branch block, unspecified; I25.10 Atherosclerotic heart disease of native coronary artery without angina pectoris | CPT/HCPCS: 99212 ==

== ENCOUNTER 2023-05-26 10:32 | Outpatient (REF) | payer MEDICARE, SELFPAY ==
[2023-05-26 12:08] LABS: Anion Gap 11 (12-20); Blood Urea Nitrogen 18 mg/dL (9-16); Calcium 8.9 mg/dL (8.4-10.2); Carbon Dioxide 25 mmol/L (22-29); Chloride 107 mmol/L (96-108); Estimated Glomerular Filt Rate > 60; Glucose Random 100 mg/dL (60-115); Potassium 4.4 mmol/L (3.3-5.1); Sodium 139 mmol/L (135-145)
== END 2023-05-26 10:33 | disposition home or self-care (01) ==
LOC: HO.LAB 10:32
PROVIDERS: PCP Physician Assistant; Visit Provider Internal Medicine
DX: I42.9 Cardiomyopathy, unspecified (principal)
CPT/HCPCS: 36415; 80048

== ENCOUNTER → 2023-10-29 09:48 | Outpatient (REF) | payer MEDICARE, SELFPAY ==
--- NOTE | 2023-10-29 09:51 | CA_ITS ---
Transthoracic Echocardiogram Patient (Last, First, Middle): Patricio Gale, Gender: Male Date of : 1955 Age: 68 Procedure Date: 10/29/2023 Procedure Type: Transthoracic Echocardiogram Location: OP Height: 177.8 cm Weight: 95.26 kg BSA: 2.13 m2 Heart Rate: 68 bpm BP: 120 / 60 mmHg Auricular Therapist: SB Referring MD: Chicho Carlos MD Symptoms: I42.9 - Cardiomyopathy, unspecified Study Quality: Adequate ECG Rhythm: Sinus Conclusions: - Normal left ventricular cavity size. There is normal left ventricular wall thickness. The left ventricular systolic function is borderline reduced. The visually estimated ejection fraction is between 45-50%. - E/E prime ratio is between 8 and 15 consistent with indeterminate filling pressures. - Normal right ventricular cavity size and systolic function. Findings Left Ventricle Normal left ventricular cavity size. There is normal left ventricular wall thickness. The left ventricular systolic function is borderline reduced. The visually estimated ejection fraction is between 45-50%. Abnormal diastolic function is noted. Spectral Doppler is indicative of a pseudonormal filling pattern. E/E prime ratio is between 8 and 15 consistent with indeterminate filling pressures. Right Ventricle Normal right ventricular cavity size and systolic function. Atria The left atrium is normal in size. The right atrium is normal in size. Aortic Valve There is a normal trileaflet aortic valve. There is mild calcification of the aortic valve. There is no aortic valve stenosis. There is no aortic valve regurgitation. Mitral Valve The mitral valve appears normal. There is no mitral valve regurgitation. There is no mitral valve stenosis. Pulmonic Valve The pulmonic valve is likely normal. Tricuspid Valve Normal tricuspid valve structure. There is no tricuspid valve regurgitation. Tricuspid regurgitation envelope is inadequate for calculation of right ventricular systolic pressure. Normal right atrial pressure. Great Vessels All visible segments of the aorta are normal in size. The visualized portions of the pulmonary artery and branches are normal. Venous The inferior vena cava is normal in size and collapses greater than 50% with inspiration. Pericardium/Pleural There is no evidence of pericardial effusion. Prior Study Comparison Changes noted compared to prior study dated: 01/14/2023. EF 45 to 50% Measurements 2D Linear Measurements IVSd: 0.97 0.6-0.9/0.6-1.0 cm LVIDd: 4.70 3.9-5.3/4.2-5.9 cm LVIDd Index: 2.21 2.4-3.2/2.2-3.1 cm/m2 LVIDs: 3.71 2.0-3.6 cm LVPWd: 1.01 0.7-1.1 cm LA Diam: 3.20 2.7-3.8/3.0-4.0 cm LAIDs Index: 1.50 1.5-2.3 cm/m2 LV Mass: 201.75 67-162/88-224 g LV Mass Index: 94.72 43-95/49-115 g/m2 LVOT Diam: 2.10 3.0+(-)1.3 cm 2D Systolic Function EF 4C: 44.90 >55% EF 2C: 52.60 >55% EF BiP: 47.20 >55% Mitral Valve MV Pk E: 0.61 MV PK A: 0.60 MV Decel Time: 206.00 E/A: 1.00 E'Lateral: 6.74 E'Medial: 3.37 E/E' Med: 18.00 E/E' Lat: 9.00 PHT: 60.00 MVA PHT: 3.67 Decel [place]: 2.96 Aortic Valve AoV Pk El: 1.32 AoV Pk Grad: 7.00 HORTENSIA: 3.10 LVOT LVOT Pk El: 1.20 LVOT Mn El: 0.84 LVOT VTI: 0.24 LVOT Pk Grad: 6.00 LVOT Mn Grad: 4.00 LVOT Diam: 2.10 LVOT Area: 3.46 Diastolic Function MV Pk E: 0.61 MV Pk A: 0.60 E/A: 1.00 E'Medial: 3.37 E/E' Med: 18.00 E' Laterial: 6.74 E/E' Lat: 9.00 Right Ventricle TAPSE (mm): 20.30 TVS' El: 10.80 Tricuspid Valve RA Press: 3.00 Great Vessels Aorta Sinus of Valsalva: 3.70 2.0-3.5 cm Ao Asc: 3.30 2.1-3.4 cm Pulmonary Veins Pulm Vein S/D 1.20 Pulmonary Valve PV Pk El: 0.99 Peak PV Grad: 4.00 Updated in Other Vendor System with Status of Final Roderick Adal MD electronically signed on 10/31/2023 9:27:09 PM with status of Final
== END ==
LOC: HO.CARD 09:48
PROVIDERS: PCP Physician Assistant; Visit Provider Internal Medicine
DX: I42.9 Cardiomyopathy, unspecified (principal)
CPT/HCPCS: 93306

== ENCOUNTER → 2023-10-29 09:51 | Outpatient (BNV) | payer MEDICARE, SELFPAY | PROVIDERS: PCP Physician Assistant; Visit Provider Internal Medicine Cardiovascular Disease | DX: I35.8 Other nonrheumatic aortic valve disorders (principal); I51.89 Other ill-defined heart diseases | CPT/HCPCS: 93306 ==

== ENCOUNTER 2023-11-04 12:50 | Outpatient (AMB) | payer MEDICARE, SELFPAY ==
[2023-11-04 12:58] VITALS: BP 108/58; PULSE 67; BMI 30.7
--- NOTE | 2023-11-04 12:58 | A.OFFVIS_ITS ---
Vital Signs 11/04/23 12:58 Height 5 ft 10 in Weight 213 lb 13.574 oz BMI 30.7 BP 108/58 L Blood Pressure Location Lt brachial Position Sitting Pulse 67 Intake Visit Reasons: 6 mth f/up Pipelines Superintendent Required: No Accompanied by: Self / Same As Patient Allergies nut - unspecified Allergy (Severe, Verified 05/03/23 13:11) Anaphylaxis Penicillins Allergy (Severe, Verified 05/03/23 13:11) Unknown Medication List - Last Reconciled 11/04/23 by Chicho Carlos MD albuterol sulfate 90 mcg/actuation 2 puffs inhalation Q6H PRN atorvastatin 40 mg PO DAILY 90 days ezetimibe (Zetia) 10 mg PO DAILY sacubitril-valsartan 24-26 mg (Entresto) 1 tab PO BID 90 days HPI Comments Details: Patricio returns for follow-up. Originally seen in consultation regarding cardiomyopathy. Echocardiogram and stress test were abnormal and hence he was referred here. Subsequently, he underwent coronary CTA as well. Otherwise, for the most part he feels fine. Some nonspecific chest pressure but nonexertional. No other new concerns. Both his brother as well as sister had pancreatic cancer and passed. He used to be in [place] but now he lives locally. 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 [facility] Medical History (Updated 05/03/23 @ 14:59 by Chicho Carlos MD) Atherosclerotic cardiovascular disease Mild intermittent asthma Hyperlipidemia Surgical History Hx of endoscopy (~2000) Hx of colonoscopy (~2000) [place] teeth extracted Family History Father Heart problem, Onset Age: 65 Mother Diabetes Sister Pancreatic cancer Brother Pancreatic cancer Social History Housing: House Alcohol intake: former Patient Tobacco Use Status: Never used Tobacco e-Cigarette/Vaping Use: Never Used Second Hand Smoke Exposure: No Substance Use Type: Marijuana service: No Current occupational status: retired 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 Cognitive needs: No Hearing needs: No Vision needs: No Review of Systems Const Denies chills, Denies fatigue, Denies fever(s), Denies weight gain and Denies weight loss ENT Denies dizziness Card Denies chest pain, Denies leg edema, Denies lightheadedness, Denies palpitations, Reports dyspnea on exertion, Denies orthopnea and Denies other Resp Denies cough and Reports dyspnea on exertion GI Denies hematochezia and Denies change in stool character Musc Denies abnormal gait, Denies muscle weakness, Denies numbness, Denies radiating pain into limb and Denies tingling Neuro Denies abnormal gait, Denies dizziness, Denies numbness and Denies tingling Endo Denies fatigue and Denies palpitations Physical Exam Vital Signs: Last Vital Signs Pulse 67 11/04/23 12:58 BP 108/58 L 11/04/23 12:58 BMI result Body Mass Index 30.7 Const General: comfortable and no acute distress Orientation/consciousness: patient oriented x3 HEENT Other: Unremarkable Head: Yes normal to inspection Neck Neck: Yes normal visual inspection Chest Chest palpation & inspection: normal inspection of the chest Resp Auscultation: clear to auscultation bilaterally Cardio Palpation: normal PMI Heart sounds: S1 normal heart sound present, S2 normal heart sound present, no gallops, no murmurs and no rubs GI Palpation (GI): Soft to palpation Back/Spine/Pelvis Other: unremarkable Skin General skin exam: no rashes or lesions noted Neuro General: patient oriented x3 Extrem General: Yes normal to inspection Psych Mental Status: mental status grossly normal Office Procedures EKG Details: EKG with underlying sinus rhythm at 67/Min; NE prolongation to 220 millisecond; left bundle-branch block. [id number], Complete Assessment & Plan Assessment & Plan (1) Cardiomyopathy: Code(s): I42.9 - Cardiomyopathy, unspecified Category: Medical (2) LBBB (left bundle branch block): Code(s): I44.7 - Left bundle-branch block, unspecified Category: Medical (3) Atherosclerotic cardiovascular disease: Code(s): I25.10 - Atherosclerotic heart disease of [place] coronary artery without angina pectoris Category: Medical Plan Cardiac studies reviewed. Recent EKG shows sinus rhythm with left bundle-branch block pattern. A prior EKG from 2020 also shows the left bundle-branch block pattern. Hence actual time of onset is not clear. Could be chronic but we do not have any previous EKGs prior to 2021. Initial echocardiogram with moderate LV systolic dysfunction with LVEF of 35- 40%. In the repeat study, LVEF 45-50%. In the stress perfusion imaging study, somewhat suboptimal. Anterior/lateral wall thought to be normal but inferior/septal wall could not be assessed adequately. Coronary calcium score showed a total score of 656. Majority in the LAD. Some left main/RCA. In the CTA, distal left main/proximal LAD calcification but less than 40% stenosis. FFR is also negative. Otherwise unremarkable. Cardiac BNP is only 15. Overall, he has left bundle-branch block, cardiomyopathy, coronary disease. Clinically, no overt symptoms. Well compensated. With regard to the cardiomyopathy, continue Entresto. Due to conduction system disease, jerrod hold off beta-blockers. No indication for diuretics or other medications. With regard to coronary disease, continue statins and Zetia. Last LDL 71 mg/dL. Triglycerides 60 mg/dL. Can not take any higher doses of statins due to aches and pains. If no contraindications, may also take aspirin. We will see him back in 1 year with another echocardiogram. In the interim, call with concerns. Orders: Orders CA echo transthoracic complete 1 Year I42.9 - Cardiomyopathy, unspecified Coding Level of Care Code Est Pt Level 4 (69946) Diagnoses Cardiomyopathy I42.9 LBBB (left bundle branch block) I44.7 Atherosclerotic cardiovascular disease I25.10 CPT Codes EKG - CPT: 00618-[id number], Complete ([id number])
== END 2023-11-04 13:26 | disposition home or self-care (01) ==
PROVIDERS: PCP Physician Assistant; Visit Provider Internal Medicine
DX: I42.9 Cardiomyopathy, unspecified (principal); I44.7 Left bundle-branch block, unspecified; I25.10 Atherosclerotic heart disease of native coronary artery without angina pectoris
CPT/HCPCS: 93010; 99214

== ENCOUNTER → 2023-11-04 12:50 | Outpatient (BNVA) | payer MEDICARE, SELFPAY | PROVIDERS: PCP Physician Assistant; Visit Provider Internal Medicine | DX: I42.9 Cardiomyopathy, unspecified (principal); I44.7 Left bundle-branch block, unspecified; I25.10 Atherosclerotic heart disease of native coronary artery without angina pectoris | CPT/HCPCS: 93005; 99212 ==

== ENCOUNTER 2023-11-12 14:44 | Outpatient (AMB) | payer MEDICARE, SELFPAY ==
--- NOTE | 2023-11-12 14:47 | A.OFFVIS_ITS ---
Vital Signs 11/12/23 14:49 Height 5 ft 10 in Weight 216 lb 0.848 oz BMI 31.0 BP 118/60 Blood Pressure Location Rt brachial Position Sitting Pulse 77 Intake Visit Reasons: Repeat Colonoscopy Intake Note: Patricio presents to in office visit today for repeat colonoscopy screening. CC: Patient reports slight discomfort from LUQ abdomen d/t diverticulosis. Denies other GI symptoms or concerns. 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 I explain the results and that the size of the TA's he should have the next scope in 3 years. I also educated him that he should go no longer than 5 years in between colonoscopies until he has either a EGD or until he gets to a point where he thinks he has less than 10 years to live. He was quite curious about the guide wide since she has heard different things will defer people and that is why I explained to him that we have to factor in the individuals overall mortality of or we decide to stop having colon screening. That is why he has heard variable answers in terms of when to stop screenings. In his case he has no immediate comorbid conditions that seem to limit his 10 year mortality so we will keep doing it until age 78 or into something else arises. Hopefully we wish you the best of help going forward. He is quite agreeable to a 3 year is follow-up for any continues to add fiber to his diet as he was told after the procedure to keep his colon healthy. There are no prior problems with anesthesia or sedation. He now has cardiomyopathy and is tx by Dr Carlos, he has asthma per his report and he has an inhaler that he uses 3-4 times a year. No ID problems. There is no known FHX or crc or polyps. (2) History of colon polyps: ?Comment: 20 yrs ago in [place] polyps of uncertain path. ?Code(s): Z86.010 - Personal history of colonic polyps ?Category:?Medical Labs:needs repeat labs TODAY'S VISIT Patient has been lost to follow-up since 10/2020, at that time he had rather large polyps that necessitated a 3 year follow-up There are no prior problems with anesthesia or sedation. He now has cardiomyopathy and is tx by Dr Carlos, he has asthma per his report and he has an inhaler that he uses 3-4 times a year. No ID problems. There is no known FHX or crc or polyps. But he had a large TA 3 years ago. [facility] Medical History (Updated 12/06/23 @ 19:10 by SARAH Quintanilla) History of colon polyps Chest discomfort Medicare annual wellness visit, initial Family history of pancreatic cancer Colon cancer screening Screening for diabetes mellitus (DM) Screening for diabetes mellitus (DM) Annual physical exam Annual physical exam Atherosclerotic cardiovascular disease Mild intermittent asthma Hyperlipidemia Surgical History Hx of endoscopy (~2000) Hx of colonoscopy (~2000) [place] teeth extracted Family History Father Heart problem, Onset Age: 65 Mother Diabetes Sister Pancreatic cancer Brother Pancreatic cancer Social History Housing: House Alcohol intake: former Patient Tobacco Use Status: Never used Tobacco e-Cigarette/Vaping Use: Never Used Second Hand Smoke Exposure: No Substance Use Type: Marijuana service: No Current occupational status: retired 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 Cognitive needs: No Hearing needs: No Vision needs: No Review of Systems Const Denies fatigue, Denies fever(s), Denies night sweats, Denies poor appetite and Denies weight loss ENT Reports Normal hearing present, Denies dental pain, Denies dysphagia, Denies hearing loss, Denies mouth pain, Denies odynophagia, Denies throat swelling, Denies tongue swelling and Reports other (Dentition adequate) Card Reports no additional complaints Resp Reports no additional complaints GI Details: Denies abdominal pain, Denies melena, Denies bloating, Denies hematochezia, Denies constipation, Denies GI cramping, Denies dysphagia, Denies excessive flatus, Denies early satiety, Denies heartburn, Denies diarrhea, Denies nausea, Denies odynophagia, Denies vomiting and Denies hematemesis Skin/Breast Denies pruritus, Denies lesions, Denies rash and Denies jaundice Neuro Reports Normal hearing present and Denies Abnormal speech present Endo Denies fatigue Aller/Immun Denies throat swelling and Denies tongue swelling Physical Exam Vital Signs: Last Vital Signs Pulse 77 11/12/23 14:49 BP 118/60 11/12/23 14:49 BMI result Body Mass Index 31.0 Const General: cooperative, no acute distress, well developed and well groomed Nutritional Appearance: well nourished and obese Orientation/consciousness: oriented to person, oriented to place and oriented to time Limitations: No language barrier HEENT Head: Yes normocephalic and Yes atraumatic Eyes General: appearance normal, both eyes and all related structures Pupils: Equal, round and reactive pupils present Neck Neck: Yes normal visual inspection and Yes no lymphadenopathy Thyroid: Thyroid normal Resp Effort & Inspection: normal respiratory effort and able to speak in complete sentences Auscultation: clear to auscultation bilaterally Cardio Rate: regular rate Rhythm: regular rhythm Heart sounds: Murmur heart sound present systolic late Peripheral pulses: radial pulses present and posterior tibial pulses present GI Inspection: No distended, No Abdominal panniculus present and Yes obesity Palpation (GI): Soft to palpation, nontender, no guarding, not rigid and No hepatosplenomegaly present Percussion: Yes normal to percussion Auscultation: normal bowel sounds Rectal Exam - Male: Yes deferred Skin General skin exam: no rashes or lesions noted, turgor normal, skin not dry, no jaundice, No spider nevi and no striae Rashes: no rashes Nails: normal Neuro General: oriented to person, oriented to place and oriented to time Cranial nerves: Yes Equal, round and reactive pupils present and Yes Normal hearing present Speech: No Abnormal speech present Extrem General: Yes normal to inspection, No clubbing, No cyanosis and No edema Psych Appearance: grossly normal and well kempt Mental Status: mental status grossly normal Speech and movement: Normal speech and movement present Affect: normal affect Attitude: cooperative Thought process: Normal thought process present and not confabulating Thought content: Normal thought content present Insight: Good insight present (Psych) Judgement: Good judgement present (Psych) Assessment & Plan Assessment & Plan (1) Tubular adenoma of colon: Comment: 2020 scope 3 quite large repeat 3 years Code(s): D12.6 - Benign neoplasm of colon, unspecified Category: Medical (2) Heart failure with reduced ejection fraction: Code(s): I50.20 - Unspecified systolic (congestive) heart failure Category: Medical (3) Cardiomyopathy: Code(s): I42.9 - Cardiomyopathy, unspecified Category: Medical (4) Pre-op examination: Code(s): Z01.818 - Encounter for other preprocedural examination Category: Medical Plan Patient has been lost to follow-up since 10/2020, at that time he had rather large polyps that necessitated a 3 year follow-up There are no prior problems with anesthesia or sedation. He now has cardiomyopathy and is tx by Dr Carlos, he has asthma per his report and he has an inhaler that he uses 3-4 times a year. No ID problems. There is no known FHX or crc or polyps. But he had a large TA 3 years ago. Orders: Orders Comprehensive Met. Panel 11/12/23 Z86.010 - Personal history of colon polyps, D12.6 - Benign neoplasm of colon, unspecified Complete Blood Count Auto Diff 11/12/23 Z86.010 - Personal history of colon polyps, D12.6 - Benign neoplasm of colon, unspecified Colonoscopy - GI Use Only 11/12/23 Z86.010 - Personal history of colon polyps, D12.6 - Benign neoplasm of colon, unspecified Medications: New bisacodyl (Dulcolax (bisacodyl)) 10 mg (2 x 5 mg) PO BEDTIME 4 tabs 0RF 2 days peg 3350-electrolytes [id number] -5.86 gram (Golytely) until fecal effluent is clear; do not exceed a total volume of 2,000 mL 240 mL PO Q10M 4,000 mL 0RF 1 day Z12.11 - Encounter for screening for malignant neoplasm of colon Coding Level of Care Code New Pt Level 3 (63368) Diagnoses Tubular adenoma of colon D12.6 Heart failure with reduced ejection fraction I50.20 Cardiomyopathy I42.9 Pre-op examination Z01.818
[2023-11-12 14:49] VITALS: BP 118/60; PULSE 77; BMI 31.0
== END 2023-11-12 15:34 | disposition home or self-care (01) ==
PROVIDERS: PCP Physician Assistant; Visit Provider Nurse Practitioner
DX: D12.6 Benign neoplasm of colon, unspecified (principal); I50.20 Unspecified systolic (congestive) heart failure; I42.9 Cardiomyopathy, unspecified; Z01.818 Encounter for other preprocedural examination
CPT/HCPCS: 99203

== ENCOUNTER → 2023-11-12 14:44 | Outpatient (BNVA) | payer MEDICARE, SELFPAY | PROVIDERS: PCP Physician Assistant; Visit Provider Nurse Practitioner | DX: Z01.818 Encounter for other preprocedural examination (principal); R10.12 Left upper quadrant pain; D12.6 Benign neoplasm of colon, unspecified; I50.20 Unspecified systolic (congestive) heart failure; I42.9 Cardiomyopathy, unspecified; Z86.010 Personal history of colon polyps | CPT/HCPCS: 99202 ==

== ENCOUNTER 2023-11-15 10:07 | Outpatient (AMB) | payer MEDICARE, SELFPAY ==
--- NOTE | 2023-11-15 10:08 | AM.OFFVISMDC ---
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: No Allergies nut - unspecified Allergy (Severe, Verified 11/15/23 10:29) Anaphylaxis Penicillins Allergy (Severe, Verified 11/15/23 10:29) Unknown Medication List - Last Reconciled 11/15/23 by Anthony Mercado PA-C albuterol sulfate 90 mcg/actuation 2 puffs inhalation Q6H PRN aspirin 81 mg PO DAILY atorvastatin 40 mg PO DAILY 90 days bisacodyl (Dulcolax (bisacodyl)) 10 mg (2 x 5 mg) PO BEDTIME 2 days ezetimibe (Zetia) 10 mg PO DAILY uhmzypdlacef-mwusuraj-rmgite 1 tab PO DAILY peg 3350-electrolytes 236-22.74-6.74 -5.86 gram (Golytely) 240 mL PO Q10M 1 day sacubitril-valsartan 24-26 mg (Entresto) 1 tab PO BID 90 days HPI AWV G0438 HPI Details Patient is a 68-year-old male here today for annual wellness visit. Patient's past medical history significant for heart failure with reduced ejection fraction, hyperlipidemia, asthma. Today we discussed his [place] of care and end of life planning. Also we reviewed his comprehensive care plan that was scanned into documents ?tubular adenoma of colon:? did colonoscopy in 2020 found to have tubular adenoma polyp need repeat 3 years. Has upcoming colonoscopy in April of 2024 Has family history of GI malignancy (pancreatic cancer). Patient's CA 19 9 was not elevated in 2020 .. VAccine: UTd with COVID vaccine, pneumonia, tetanus and shingles vaccine. He is considering new shingles vaccine Laboratory Tests 05/26/23 10:46 Creatinine 0.84 HPI Comments History of Present Illness Details reviewed past medical history- yes reviewed surgical / hospitalization history- yes reviewed current medications- yes reviewed family history- yes home safety throw rugs? grab bars? raised toilet seat? working smoke detectors? activities of daily living difficulty bathing or showering? difficulty dressing? difficulty using the toilet? difficulty getting in and out of bed? difficulty walking? receives help from other person's with any of the above tasks? instrumental activities of daily living uses telephone - gets to place out of walking distance- go shopping for groceries- repairs own meals- does own minor home maintenance- does own laundry- does own housework- manages own money- currently takes medication- end of life planning discussed advanced directives- yes advanced directives on file? discussed wishes expressed in advanced directives. fall risk have you had any falls with injuries in the past year? have you had 2 or more falls in the past year? fall risk assessment: [facility] Medical History (Updated 11/15/23 @ 10:45 by Anthony Mercado PA-C) Family history of pancreatic cancer Colon cancer screening Screening for diabetes mellitus (DM) Screening for diabetes mellitus (DM) Annual physical exam Annual physical exam Atherosclerotic cardiovascular disease Mild intermittent asthma Hyperlipidemia Surgical History Hx of endoscopy (~2000) Hx of colonoscopy (~2000) [place] teeth extracted Family History Father Heart problem, Onset Age: 65 Mother Diabetes Sister Pancreatic cancer Brother Pancreatic cancer Social History Housing: House Alcohol intake: former Patient Tobacco Use Status: Never used Tobacco e-Cigarette/Vaping Use: Never Used Second Hand Smoke Exposure: No Substance Use Type: Marijuana service: No Current occupational status: retired 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 Cognitive needs: No Hearing needs: No Vision needs: No Questionnaire Medicare Wellness Checkup [age] What gender do you identify with?: male During the past 4 weeks, how much have you been bothered by emotional problems such as feeling anxious, depressed, irritable, sad or downhearted, and blue?: not at all During the past 4 weeks, has your physical & emotional health limited your social activities with family, friends, neighbors, or groups?: not at all During the past 4 weeks, how much bodily pain have you generally had?: no pain During the past 4 weeks, was someone available to help you if you needed & wanted help?: yes, a little During the past 4 weeks, what was the hardest physical activity you could do for at least 2 minutes?: moderate Can you get to places out of walking distance without help? (For eg., can you travel alone on buses, taxis or drive your car?): Yes Can you go shopping for groceries or clothes without someone's help?: Yes Can you prepare your own meals?: Yes Can you do your housework without help?: Yes Because of any health problems, do you need the help of another person with your personal care needs such as eating, bathing, dressing or getting around the house?: No Can you handle your own money without help?: Yes During the past 4 weeks, how would you rate your health in general?: good During the past 4 weeks how have things been going for you?: good & bad parts about equal Are you having difficulties driving your car?: no Do you always fasten your seat belt when you are in a car?: yes, usually During past 4 weeks, have you been bothered by the following: never: Falling or dizzy when standing up, Sexual problems?, Trouble eating well?, Teeth or denture problems? and Problems using the telephone? and seldom: Tiredness or fatigue? Have you fallen 2 or more times in the past year?: No Are you afraid of falling?: No Are you a smoker?: no During the past 4 weeks, how many drinks of wine, beer, or other alcoholic beverages did you have?: no alcohol at all Do you exercise for about 20 minutes 3 or more times a week?: yes, some of the time Have you been given information to help with the following?: yes: Keeping track of your medications? and no: Hazards in your house that might hurt you? How often do you have trouble taking medicines the way you have been told to take them?: I always take medicine as prescribed How confident are you that you can control & manage most of your health problems?: very confident What is your race?: White Mini Mental State Exam (MMSE) Orientation What is the (year) (season) (date) (day) (month)?: year Where are we (state) (county) (town or city) (hospital) (floor)?: town or city Attention & Calculation (CHOOSE ONE) Ask pt to begin with 100 & count backward by 7. Stop after 5 repeats. If pt cannot ask them to spell the word WORLD backward.: 65 Spell WORLD backwards (DLROW): 5 letters Score Score: 8 Activity of Daily Living Bathing - sponge bath, tub bath or shower: receives no assistance (gets in/out by self, if usual bathing means Dressing - getting clothes from closets & drawers, including inner/outer garments & fasteners.: gets clothes & gets completely dressed without help Toileting - going to the 'toilet room' for urine/bowel elimination & cleaning self/arranging clothes: goes to toilet room, cleans self, arranges clothes without help Transfer: moves in & out of bed and chair without help (may use support object) Continence: controls urination/bowel movements completely by self Feeding: feeds self without help Total Score: 0 Information obtained from: patient Using telephone: independent Traveling: independent Shopping: independent Preparing meals: independent Housework: independent Taking medicine: independent Managing money: independent PHQ-9 Over the last 2 weeks, how often have you been bothered by any of the following problems? 1. Little interest or pleasure in doing things: not at all 2. Feeling down, depressed, or hopeless: not at all 3. Trouble falling or staying asleep, or sleeping too much: not at all 4. Feeling tired or having little energy: several days 5. Poor appetite or overeating: several days 6. Feeling bad about yourself - or that you are a failure or have let yourself or your family down: not at all 7. Trouble concentrating on things, such as reading the newspaper or watching television: not at all 8. Moving or speaking so slowly that other people could have noticed. Or the opposite - being so fidgety or restless that you have been moving around a lot more than usual: not at all 9. Thoughts that you would be better off or of hurting yourself in some way: not at all Total score: 2 Depression Screening Interpretation: Negative Depression Screening Done: Yes 46133 - PHQ-9 Billing: Yes Source: Developed by Drs. John Peters, Annia Esquivel, Wan Tobin and colleagues, with an educational nasir from [employer] Physical Exam Vital Signs: Last Vital Signs Pulse 62 11/15/23 10:09 BP 130/78 11/15/23 10:09 Pulse Ox 98 11/15/23 10:09 Oxygen Delivery Method Room Air 11/15/23 10:09 BMI result Body Mass Index 30.7 HEENT Other: hearing screening whisper test- passed Eyes Other: vision screening- 20/20 ROS OD 0 you Other: urinary incontinence? no Neuro Other: balance Romberg- normal tandem walk test- able walk-in turned test- able rise from sit to stand- within 2 seconds Immunizations pneumoc 20-colette conj-dip cr(PF) 0.5 mL IM syringe Performing Provider: Anthony Mercado PA-C [place] [facility] Administered by: UMA Leal on 11/15/23 10:50 Dose Route Admin Location Dispensed Lot Number Expiration Date NDC Community Support Specialist 0.5 mL IM Left Deltoid 0.5 mL [id number] 01/15/25 1216-3895-58 [employer] VIS Given Date VIS Provided VIS Publication Date 11/15/23 Single Vaccine 21 Eligibility Eligibility Date Funding Source Not [facility] Eligible 11/15/23 Private Assessment & Plan Assessment & Plan (1) Medicare annual wellness visit, initial: Code(s): Z00.00 - Encounter for general adult medical examination without abnormal findings Plan: As per HPI Orders: Orders Prostate Specific Antigen Scr Today Z12.5 - Encounter for screening for malignant neoplasm of prostate Lipid Panel Today E78.2 - Mixed hyperlipidemia Comprehensive [place]. Panel Fast Today E78.2 - Mixed hyperlipidemia Complete Blood Count no Diff Today E78.2 - Mixed hyperlipidemia Pneumococcal 20 Immunization Today E78.2 - Mixed hyperlipidemia, Z23 - Encounter for immunization Quality Reporting (2019) Depression/Bipolar (159/160/161/177) PHQ-9: Total score: 2 Coding Level of Care Code Medicare First (G0438) Diagnoses Medicare annual wellness visit, initial Z00.00 CPT Codes Advance Care Planning - Advance Care Planning discussion: On file, no changes ([id number]) Advance Care Planning - Time spent: 1-15 minutes, on File ([id number]) Advance Care Planning Advance Care Planning discussion: On file, no changes Date of discussion: 11/15/23 Forms completed: MOLST Time spent: 1-15 minutes, on File Actual minutes spent: 2
[2023-11-15 10:09] VITALS: BP 130/78; PULSE 62; O2SAT 98; BMI 30.7
== END 2023-11-15 10:59 | disposition home or self-care (01) ==
PROVIDERS: PCP Physician Assistant; Visit Provider Physician Assistant
DX: Z00.00 Encounter for general adult medical examination without abnormal findings (principal); Z23 Encounter for immunization; E78.2 Mixed hyperlipidemia

== ENCOUNTER → 2023-11-15 10:07 | Outpatient (BNVA) | payer MEDICARE, SELFPAY | PROVIDERS: PCP Physician Assistant; Visit Provider Physician Assistant | DX: Z00.00 Encounter for general adult medical examination without abnormal findings (principal); Z23 Encounter for immunization; E78.2 Mixed hyperlipidemia | CPT/HCPCS: 90471; 90677 ==

== ENCOUNTER 2024-04-28 07:14 | Day surgery (SDC) | payer MEDICARE, SELFPAY ==
--- OUTSIDE RECORDS SUMMARY | 2024-03-31 12:21 | XMS_ITS | Clinical Summary ---
Author Organization [facility] Address [address] [place] [address] Care Team Providers Care Carpet Journeyman Name Role Phone Unavailable Primary Care Provider Unavailabl e Source Comments PLEASE NOTE, if this patient is a minor, it may be UNLAWFUL to discuss sensitive information that is contained in these records (such as FAMILY PLANNING, MENTAL HEALTH or SUBSTANCE ABUSE) with the minor patient's parent or other person without the patient's specific authorization.[facility] Allergies Active Allergy Reactions Criticality Noted Date Comments Nuts 01/22/2015 Penicillin 12/18/2014 Medications albuterol sulfate hfa 90 mcg/actuation inhalerIndications :Lateral epicondylitis of left elbow Inhale 2 Puffs into the lungs every 4 (four) hours as needed for shortness of breath. 6.7 g 0 5 Active sildenafil (VIAGRA) 25 mg tabletIndications: Erectile dysfunction due to arterial insufficiency Take 1 Tab by mouth once daily as needed for erectile dysfunction. 10 Tab 0 6 Active atorvastatin (LIPITOR) 40 mg tablet Take 1 Tab by mouth once daily 90 Tab 1 0 Active Active Problems Problem Noted Date Diagnosed Date Left flank pain 04/14/2018 Assessment & Plan (04/14/2018 1:03 PM EST): - likely 2 issues: due to spasm of left lat dorsi and left rib costocondritis - check xrays of Tspine for compression fxr and ant rib for rib fxr or occult malignancy - back massage, heat - supportive care Routine general medical exam ination at a health care facility 02/22/2017 Assessment & Plan (04/14/2018 1:06 PM EST): - BP normal on no meds - LDL Improved from 140s to 60 on lpitor 80, reduce to 40 because of ?side effects, check lipids in 3 mos - PCV 13 today - shingrix today - quit smoking cigars 3 yrs ago - FIT test normal 2017 Assessment & Plan (02/22/2017 1:11 PM EST): - normal exam - BP normal on no meds - Tchol improved from 250s to 120s on lipitor. Continue - lipids normal in 2016, recheck in 2-3 yrs - tdap utd, has pneumovax done already. PCV 13 when turns 63 - check FIT test - - flushot today =- quit smoking cigars 2 yrs ago. Was daily cigar smoker prior Pes planus 02/22/2017 Assessment & Plan (02/22/2017 1:12 PM EST): Pain ni medial sole likely pes planus causing overpronation. Advised re otc arches. Return if not improving Erectile dysfunction 04/23/2015 Assessment & Plan (04/23/2015 5:50 PM EST): ED likely a combination of aging, hypercholesterolemia, decreased arterial sufficiency. -Will trial viagra, instructed on safe use -Counseled on safe reproductive health Prediabetes 01/22/2015 Assessment & Plan (01/22/2015 4:13 PM EST): Pt with prediabetes with A1C of 5.7%. Fhx of diabetes. -Patient counseled on appropriate eating habits, will attempt dietary and lifestyle modification for glycemic, BP, and cholesterol control -will follow up lifestyle changes in 3 months -Will follow up A1c in one year Hypercholesterolemia 01/22/2015 Assessment & Plan (08/22/2018 9:47 AM EDT): - pt w HL, had likely statin mypoathy, now resolved w reduction of lipitor from 80 to 40 - LDL ky only from 60 to 80s, which is acceptable Assessment & Plan (04/14/2018 1:04 PM EST): - LDL improved from 140s to 60 on lipitro 80, buit having nightly calf cramps - reduce lipitor to 40 - cehck lipids in 3 mos, f/u 1 wk later to review results. Assessment & Plan (08/15/2015 12:46 PM EDT): Tchol 243 in Dec 2014 when was smoker, and ASVD risk per pt was 33%. As nonsmoker is still 12.6%, and optimized is 6.9% - now tchol 120s, ASCVD risk in nonsmoker w no htn/dm, only HL, is 6.9% - continue lipitor Assessment & Plan (08/08/2015 2:50 PM EDT): Begun on statin therapy, continues with good lifestyle changes. -Re-emphasized lifestyle changes -will check lipid panel, CMP today (eval for liver function) -Follow up in 6 months -Follow up results with patient Assessment & Plan (04/23/2015 5:52 PM EST): Meeting goals: weight loss, smoking cessation, increased exercise, less red meats in diet, more fruits and vegetables in diet. -Will follow up in 3 months to test cholesterol levels, consider decreasing statin dose at that time by reassessing ASCVD risk. Assessment & Plan (01/22/2015 4:11 PM EST): Pt with elevated LDL and total cholesterol. ASCVD of 20% without smoking, 35% with smoking. -patient will begin on high dose statins after return from trip next week, counseled on side effects and reasons for return to care -Pt with healthy lifestyle plan developed today, including decreasing cigar smoking -will follow up in 3 months on lifestyle changes, smoking cessation, and statin therapy (with LFTs) Encounter for smoking cessation counseling 01/22 Assessment & Plan (08/08/2015 2:52 PM EDT): Patient now without a cigar x 6 months. -Re-emphasized importance of not smoking Assessment & Plan (01/22/2015 4:17 PM EST): Pt counseled on cigar smoking cessation, promises to cut down in the next 3 months prior to next follow up. Pt declines medical alternatives at this time. -Check on progress in 3 months. Lateral epicondylitis of left elbow 12/18/2014 Overview (12/18/2014): Patient with one year of elbow stiffness after initial injury while shoveling the snow during the winter of 2013. Assessment & Plan (12/18/2014 5:36 PM EST): Patient counseled on use of a band for tennis elbow available at local pharmacies or sports stores. -Recommended physical therapy if symptoms persist -Will recommend some stretching exercises to help with strengthening of ligaments and muscles -Recommend NSAIDs like ibuprofen, ice, and rest if symptoms arise again. Onychomycosis 12/18/2014 Assessment & Plan (12/18/2014 5:39 PM EST): Patient with toenails of second digits of both feet with exam and history consistent with toenail fungus (onychomycosis). Anti-fungal creams tried in the past to little relief. -Patient explained natural history and course of the fungus -Patient told about possible long-term therapy with oral anti-fungals if patient is interested in the future Immunizations Name Administration Dates Next Due Flu, Cell Culture based, Pre servative Free, 6m+, Flucelvax 02/22/2017 Flu, High Dose, 65y+, Fluzone High Dose 11/15/19 20 Flu, Multi Dose 0.5 ML 11/30/2017 INFLUENZA, SEASONAL, INJECTABLE 12/18/2014 Influenza (FLUZONE), high-dose, trivalent, PF PNEUMOCOCCAL CONJUGATE PCV 13 04/14/2018 PNEUMOCOCCAL POLYSACCHARIDE PPV23 12/18/2014 TDAP 12/18/2014 ZOSTER VACCINE, RECOMBINANT (SHINGRIX) 9 Family History Medical History Relation Name Comments Heart Problems Father Diabetes Maternal Grandmother Diabetes Mother Diabetes Sister Cancer Neg Glaucoma Neg Relation Name Status Comments Father Maternal Grandmother Mother Sister Social History Tobacco Use Types Packs/Day Years Used Date Smoking Tobacco: Former Cigars Smokeless Tobacco: Former Tobacco Cessation:Ready to Q uit: Yes; Counseling Given: Yes Alcohol Use Standard Drinks/Week Comments Yes 24 (1 standard drink = 0.6 oz pu re alcohol) Social Connections Answer Date Recorded Connectedness 0 10/23/2023 Financial Resource Strain Answer Date R ecorded Financial Resource Strain 0 2018 Stress Answer Date Recorded Stress 0 10/09/2018 Physical Activity Answer Date Recorded Physical Activity 0 10/09/2018 Food Insecurity Answer Date Recorded Food 0 11/11/2023 Transportation Needs Answer Date Record ed Transportation 0 10/09/2018 Housing Stability Answer Date Recorded Housing 0 02/22/2017 Safety and Environment Answer Date [place] rded Safety 0 10/09/2018 Utilities Answer Date Recorded Utilities 0 10/09/2018 Employment Answer Date Recorded Employment 0 10/09/2018 Sex and Gender Information Value Date Recorded Sex Assigned at Not on file Legal Sex Male 12:17 PM PDT Gender Identity Not on file Sexual Orientation Not on file Last Filed Vital Signs Vital Sign Reading Time Taken Comments Blood Pressure 109/71 08/22/2018 9:07 AM EDT Pulse 59 08/22/2018 9:07 AM EDT Temperature 36.3 ??C (97.4 ??F) 08/22/2018 9:07 AM ED T Respiratory Rate - - Oxygen Saturation 94% 08/22/2018 9:07 AM EDT Inhaled Oxygen Concentration - - Weight 95.7 kg (211 lb) 08/22/2018 9:07 AM EDT Height 175.3 cm (5' 9 ) 02/22/2017 11:29 AM EST Body Mass Index 31.16 02/22/2017 11:29 AM EST Plan of Treatment Not on file [place]
--- NOTE | 2024-04-27 08:46 | HO.ANESPROP2 ---
Documented by User: Yvonne Ruelas NP 04/27/24 08:51 HPI - Anesthesia Eval Consult details Narrative: 69yo M for Colonoscopy [place] [facility] [place] bundle-branch block, cardiomyopathy, coronary disease. Stable at 10/2023 office visit for 1 year f/u [facility] Active Problems Active Problems: All Active Problems Pre-op examination (Acute) Atherosclerotic cardiovascular disease (Acute) LBBB (left bundle branch block) (Acute) Cardiomyopathy (Acute) Heart failure with reduced ejection fraction (Acute) Pre-syncope (Acute) LVH (left ventricular hypertrophy) (Acute) Tubular adenoma of colon (Acute) HLD (hyperlipidemia) (Acute) Former smoker (Acute) Allergic asthma (Acute) Obese (Acute) Past Medical History Medical History History of colon polyps Chest discomfort Medicare annual wellness visit, initial Family history of pancreatic cancer Colon cancer screening Screening for diabetes mellitus (DM) Screening for diabetes mellitus (DM) Annual physical exam Annual physical exam Atherosclerotic cardiovascular disease Mild intermittent asthma Hyperlipidemia Family History Family History Father Heart problem, Onset Age: 65 Mother Diabetes Sister Pancreatic cancer Brother Pancreatic cancer Surgical History Surgical History Hx of endoscopy (~2000) Hx of colonoscopy (~2000) [place] teeth extracted History of Problems with Anesthesia: No Social History Social History Housing: House Are you a primary sub acute care nurse to a significant other at home: No Do you presently have visiting nurse or other home services: No Alcohol intake: former Patient Tobacco Use Status: Former Tobacco user e-Cigarette/Vaping Use: Never Used Second Hand Smoke Exposure: No Substance Use Type: Marijuana Have you been hit, kicked, punched, or otherwise hurt by someone within the past year? 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 There is normal left ventricular wall thickness. The left ventricular systolic function is borderline reduced. The visually estimated ejection fraction is between 45-50%. - E/E prime ratio is between 8 and 15 consistent with indeterminate filling pressures. - Normal right ventricular cavity size and systolic function. EKG 10/2023 EKG Details: EKG with underlying sinus rhythm at 67/Min; [place] prolongation to 220 millisecond; left bundle-branch block. Per 10/2023 cardiac office visit note: In the stress perfusion imaging study, somewhat suboptimal. Anterior/lateral wall thought to be normal but inferior/septal wall could not be assessed adequately. Coronary calcium score showed a total score of 656. Majority in the LAD. Some left main/RCA. In the CTA, distal left main/proximal LAD calcification but less than 40% stenosis. FFR is also negative. Otherwise unremarkable. Assessment and Plan Assessment Anesthesia Assessment: Chart Reviewed Final Anesthetic Review History of Problems with Anesthesia: No Documented by User: Valarie Flores MD 04/28/24 08:58 [facility] Active Problems Active Problems: All Active Problems Pre-op examination (Acute) Atherosclerotic cardiovascular disease (Acute) LBBB (left bundle branch block) (Acute) Cardiomyopathy (Acute) EF 45-50% Heart failure with reduced ejection fraction (Acute) Pre-syncope (Acute) LVH (left ventricular hypertrophy) (Acute) Tubular adenoma of colon (Acute) HLD (hyperlipidemia) (Acute) Former smoker (Acute) Allergic asthma (Acute) Obese (Acute) CAD. Denies recent chest pressure Past Medical History Medical History History of colon polyps Chest discomfort Medicare annual wellness visit, initial Family history of pancreatic cancer Colon cancer screening Screening for diabetes mellitus (DM) Screening for diabetes mellitus (DM) Annual physical exam Annual physical exam Atherosclerotic cardiovascular disease Mild intermittent asthma Hyperlipidemia Family History Family History Father Heart problem, Onset Age: 65 Mother Diabetes Sister Pancreatic cancer Brother Pancreatic cancer Family history of problems with anesthesia: No Surgical History Surgical History Hx of endoscopy (~2000) Hx of colonoscopy (~2000) [place] teeth extracted History of Problems with Anesthesia: No Social History Social History Housing: House Are you a primary sub acute care nurse to a significant other at home: No Do you presently have visiting nurse or other home services: No Alcohol intake: former Patient Tobacco Use Status: Former Tobacco user e-Cigarette/Vaping Use: Never Used Second Hand Smoke Exposure: No Substance Use Type: Marijuana Have you been hit, kicked, punched, or otherwise hurt by someone within the past year? 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 Cognitive needs: No Hearing needs: No Vision needs: No Meds Allergies Allergy/AdvReac Type Severity Reaction Status Date / Time nut - unspecified Allergy Severe Anaphylaxis Verified 04/28/24 07:58 Penicillins Allergy Severe Unknown Verified 04/28/24 07:58 Home Medications ?Medication ?Instructions ?Recorded ?Confirmed ?Last Taken ?Type aspirin 81 mg tablet,delayed 81 mg PO DAILY 11/12/23 04/28/24 04/24/24 History release tiwynidnrxnk-etlkrmru-pihlic tablet 1 tab PO DAILY 11/12/23 04/28/24 Unknown History Exam Height,Weight and Vital Signs: Height 5 ft 10 in Weight 93 kg Vital Signs Temp Pulse Resp BP Pulse Ox O2 Del Method 04/28/24 07:56 98.1 F 77 18 113/78 99 Room Air Airway Mallampati Class: II TM Dist: >3cm Neck ROM: Full Loose/Missing/Broken Teeth: Yes (Missing wisdom teeth. Denies broken, loose, missing teeth) Heart: RRR Lungs: CTAB Assessment and Plan Assessment Anesthesia Assessment: Anesthesia Plan Discussed and Chart Reviewed Final Anesthetic Review Family History of Problems with Anesthesia: No History of Problems with Anesthesia: No NPO: Yes ASA Class: III Final Preanesthetic Review: No Changes in Pt Med Stat, Meds/Allgs Chart Reviewed, Consent Obtained/Reviewed and Anes Risks/Benef Reviewed Patient Risk: Intermediate Procedure Risk: Low Assessment/Block/Sedation in SS: Assess/Block/Sedation-SS Anesthetic Plan Anesthetic Plan: TIVA Disposition: Standard PACU
[2024-04-28 07:43] VITALS: BMI 29.4
[2024-04-28] MEDS: Lactated Ringers 1,000 ML 100 ML IVCONT (07:49)
[2024-04-28 07:56] VITALS: BP 113/78; PULSE 77; RESP 18; TEMP 36.7; O2SAT 99
--- NOTE | 2024-04-28 08:03 | MHC.SHP ---
Pre-Procedural Eval Section A - 24 Hr Update-Section A only Date of Service: 04/28/24 Section B - Complete if H&P > 30 days Chief Complaint: Benign neoplasm of colon,hx colonic polyps Relevant Family History (Specify if Yes): No Relevant Social History: Tobacco Use (Former smoker) Present Medications: see Short Stay Collaborative assessment Medical History: Significant History (Atherosclerotic cardiovascular disease Mild intermittent asthma Hyperlipidemia) History of Previous Operations: Relevant previous surgery/procedure and date(s) (Hx of endoscopy (~2000) Hx of colonoscopy (~2000) [place] teeth extracted) Allergies: Allergies Allergy/AdvReac Type Severity Reaction Status Date / Time nut - unspecified Allergy Severe Anaphylaxis Verified 04/28/24 07:58 Penicillins Allergy Severe Unknown Verified 04/28/24 07:58 Review of Systems Sugical H&P ROS: Negative: Constitution, Cardiovascular, Respiratory and Gastrointestinal Exam Surgical H&P Exam: Normal: Heart, Normal: Lungs, Normal: Extremities and Normal: Abdomen Plan Diagnosis/Plan: Unchanged I have reviewed the history and physical and performed a pertinent physical examination on my patient. No changes have occurred unless specified. Time Spent With Patient Time: Total time managing care of this patient today ____ minutes.
--- NOTE | 2024-04-28 09:08 | P.OPN-COLO_ITS ---
Colonoscopy Operative Note Operative Note Date of Service: 04/28/24 Narrative: COLONOSCOPY TILL CECUM WITH SNARE POLYPECTOMY Pre-op diagnosis: Surveillance for colon polyps. Post-op diagnosis:? Colon polyps, Diverticulosis, hemorrhoids Endoscopist:? Margy Carvajal MD Anesthesia:?MAC Consent: Indications for the procedure and potential complications of bleeding, perforation, reaction to medications and missed diagnosis were discussed with the patient and informed consent was obtained. Instrument: Olympus PCF H 190 L variable stiffness pediatric colonoscope Monitoring: Vital signs and clinical assessment, intermittent blood pressure monitoring, continuous EKG monitoring, Pulse oximetry and Carbon Dioxide monitoring were done throughout the procedure. Please see anesthesia flowsheet. Colon withdrawl time was 18 minutes. Procedure: The patient was placed in the left lateral decubitis position and pre-procedure medications were administered. After a digital rectal examination of the ano-rectum, the video colonoscope was inserted into the rectum and advanced through the colon to the cecum. The colonoscope was slowly withdrawn in a retrograde panoramic fashion and the colon mucosa was carefully examined including a retroflexed view of the rectum. Findings and interventions are described below. Procedure Difficulty: There was narrowing in the sigmoid colon from 25 to 35 cms due to severe diverticulosis which was navigated with some difficulty Findings: Terminal Ileum: Not evaluated Cecum: Normal Ascending Colon: Moderate diverticulosis throughout the entire colon Transverse Colon: A 7-8 mm sessile polyp - removed with a stiff hot snare. Some bleeding noted at the polypectomy site which was treated with cautery using the snare tip with cessation. Moderate diverticulosis throughout the entire colon. Descending Colon: Moderate diverticulosis Sigmoid Colon: Severe diverticulosis with luminal narrowing Rectum: A 4-5 mm diminutive appearing polyp - removed with a cold snare. Ano-rectum: Small internal hemorrhoids Colon preparation: Good after some irrigation. [place] Bowel Preparation Scale Right colon; 2 Transverse colon: 2 Left colon; 2 (0 = Unprepared colon segment with mucosa not seen due to solid stool that cannot be cleared. 1 = Portion of mucosa of the colon segment seen, but other areas of the colon segment not well seen due to staining, residual stool and/or opaque liquid. 2 = Minor amount of residual staining, small fragments of stool and/or opaque liquid, but mucosa of colon segment seen well. 3 = Entire mucosa of colon segment seen well with no residual staining, small fragments of stool or opaque liquid) Impression and Post Procedure Diagnosis: Colonoscopy Findings: Two small polyps were removed Moderate to severe diverticulosis seen in the entire colon Small hemorrhoids on retroflexed exam. Plan: Pt has a FU appointment on 05/12/24 with Cynthia Murray NP. Repeat Colonoscopy in 5 years if polyps are adenomatous (if pt remains in stable health) and due to a history of adenomatous colon polyps. Above findings were reviewed with the patient and relevant handouts were given and the discharge area.
[2024-04-28 09:12] VITALS: BP 100/48; PULSE 67; RESP 14; TEMP 36.2; O2SAT 94
[2024-04-28 09:25] VITALS: BP 106/60; PULSE 61; RESP 14; O2SAT 97
== END 2024-04-28 10:04 | disposition home or self-care (01) ==
PROVIDERS: PCP Physician Assistant; Visit Provider Internal Medicine Gastroenterology
PROC: 0DJD8ZZ Inspection of Lower Intestinal Tract, Via Natural or Artificial Opening Endoscopic (ICD-10-PCS; CPT 45378; principal; 2024-04-28 08:30)
DX: Z12.11 Encounter for screening for malignant neoplasm of colon (principal); Z86.0101 Personal history of adenomatous and serrated colon polyps; D12.3 Benign neoplasm of transverse colon; K62.1 Rectal polyp; K57.30 Diverticulosis of large intestine without perforation or abscess without bleeding; K64.8 Other hemorrhoids; Z80.0 Family history of malignant neoplasm of digestive organs; I25.10 Atherosclerotic heart disease of native coronary artery without angina pectoris; I50.20 Unspecified systolic (congestive) heart failure; I51.7 Cardiomegaly; E78.5 Hyperlipidemia, unspecified; J45.20 Mild intermittent asthma, uncomplicated; Z88.0 Allergy status to penicillin; Z91.018 Allergy to other foods; Z87.891 Personal history of nicotine dependence
CPT/HCPCS: 45385; 88305; J2003; J2704

== ENCOUNTER → 2024-04-28 07:14 | Outpatient (BNV) | payer MEDICARE, SELFPAY | PROVIDERS: PCP Physician Assistant; Visit Provider Internal Medicine Gastroenterology | DX: Z12.11 Encounter for screening for malignant neoplasm of colon (principal); Z86.0100 Personal history of colon polyps, unspecified; D12.3 Benign neoplasm of transverse colon; K62.1 Rectal polyp | CPT/HCPCS: 45385 ==

== ENCOUNTER 2024-05-08 09:55 | Outpatient (REF) | payer MEDICARE, SELFPAY ==
[2024-05-08 10:13] LABS: MANUAL DIFF FLAG NO
[2024-05-08 11:24] LABS: Basophils Percent Auto 0.5 % (0-2); Eosinophils Absolute Auto 0.2 X10*3/uL (0.0-0.4); Eosinophils Percent Auto 1.9 % (0-4); Hematocrit 43.6 % (42.0-52.0); Hemoglobin 14.6 g/dl (14.0-18.0); Imm Gran Abs Auto 0.02 X10*3/uL (0.00-0.03); Imm Gran Pct Auto 0.2 % (0.0-0.4); Lymphocytes Absolute Auto 1.9 X10*3/uL (1.2-4.9); Lymphocytes Percent Auto 22.9 % (20-40); Mean Corpuscular HGB Conc 33.5 g/dl (31.0-36.0); Mean Corpuscular Hemoglobin 30.5 pg (27.0-33.0); Mean Corpuscular Volume 91.2 fL (80.0-98.0); Mean Platelet Volume 9.7 fL (9.4-12.4); Monocytes Absolute Auto 0.6 X10*3/uL (0.1-1.2); Monocytes Percent Auto 7.4 % (2-11); Neutrophils Absolute Auto 5.7 x10*3/uL (2.0-8.3); Neutrophils Percent Auto 67.1 % (45-73); Platelet Count 244 X10*3/uL (160-400); Red Blood Count 4.78 X10*6/uL (4.60-5.80); Red Cell Distribution Width 12.3 % (11.0-16.0); White Blood Count 8.4 X10*3/uL (4.8-10.8)
[2024-05-08 11:57] LABS: Alanine Aminotransferase 33 U/L (0-40); Albumin Level 4.2 g/dL (3.5-5.0); Alkaline Phosphatase 80 U/L (39-117); Anion Gap 11 (12-20); Aspartate Amino Transferase 52 U/L (5-37); Bilirubin Total 0.7 mg/dL (0.0-1.0); Blood Urea Nitrogen 16 mg/dL (9-16); Calcium 9.4 mg/dL (8.4-10.2); Carbon Dioxide 26 mmol/L (22-29); Chloride 109 mmol/L (96-108); Cholesterol 121 mg/dL (<200); Estimated Glomerular Filt Rate > 60; Glucose Fasting 108 mg/dL (60-99); Glucose Random 107 mg/dL (60-115); HDL Cholesterol 43 mg/dL (>40); LDL Cholesterol Calculated 62 mg/dL (<100); Potassium 4.8 mmol/L (3.3-5.1); Sodium 141 mmol/L (135-145); Total Protein 7.1 g/dL (6.5-8.0); Triglycerides 80 mg/dL (<150)
[2024-05-08 12:13] LABS: Prostate Specific Antigen Scr 1.44 ng/mL (<0.05-4.0)
== END 2024-05-08 09:56 | disposition home or self-care (01) ==
LOC: HO.LAB 09:55
PROVIDERS: Nurse Practitioner; PCP Physician Assistant; Visit Provider Physician Assistant
DX: E78.2 Mixed hyperlipidemia (principal); Z86.0100 Personal history of colon polyps, unspecified; Z12.5 Encounter for screening for malignant neoplasm of prostate
CPT/HCPCS: 36415; 80053; 80061; 84153; 85025; 85027

== ENCOUNTER 2024-05-15 10:30 | Outpatient (AMB) | payer MEDICARE, SELFPAY ==
[2024-05-15 10:36] VITALS: BP 130/80; PULSE 66; RESP 15; TEMP 36.3; O2SAT 98; BMI 30.6
--- NOTE | 2024-05-15 10:36 | A.OFFPC_ITS ---
Vital Signs 05/15/24 10:36 Height 5 ft 10 in Weight 213 lb 6 oz BMI 30.6 BP 130/80 Blood Pressure Location Lt brachial Position Sitting Respiration 15 Pulse 66 Pulse Source Pulse Oximeter Temp 97.3 F Temp Source Temporal Artery Scan Pulse Oximetry (%) 98 Oxygen Delivery Method Room Air Intake Visit Reasons: 6mth f/u Sugar Controller Required: No Accompanied by: Self / Same As Patient Allergies nut - unspecified Allergy (Severe, Verified 05/15/24 11:04) Anaphylaxis Penicillins Allergy (Severe, Verified 05/15/24 11:04) Unknown Tobacco use date assessed: 05/15/24 Fall risk assessment: No Falls in past year Last assessed Fall Risk: 05/15/24 Dental Screening Dental Screen Date: 05/15/24 Did you have a dental visit in the last 12 months?: Yes Did you have a dental problem in the last 6 months where you did not have access to dental care?: No Was dental information given to patient?: Patient has dentist HPI 6mth f/u HPI Details Patient is a 69-year-old male here today for a follow up. Patient has a past medical history significant for former smoker ( 16 years) quite in 1988, hyperlipidemia and is on statin therapy, LVH, heart failure, .. Heart failure with a reduced ejection fraction: Followed by [facility]. He has been placed on interested though which has been working well to reduce his heart failure symptoms. His cholesterol is managed with atorvastatin 40 and ezetimibe 10. At higher doses of atorvastatin he did have side effects of myalgias. Concerns--> His long-standing dermatological concerns include xerosis with familial tendencies and previous childhood eczema. He maintains personal care with moisturizers and covers concern about nail health, suspecting fungal involvement. .. HLD:? Patient's most l recent lipid panel showing much improved lipid.? Has been unable to tolerate statin higher than 40 mg.? Will continue to follow lipid panel.? He will continue to work on lifestyle and the current dose of atorvastatin 40 mg. ?tubular adenoma of colon:? patient underwent colonoscopy in 2024- did find a polyp that was tubular adenoma. Patient's CA 19 9 was not elevated in 2020 Laboratory Tests 11/04/22 05/08/24 10:17 10:12 Hgb 14.6 Creatinine 0.86 Fasting Glucose 108 H AST 52 H ALT 33 Cholesterol 121 LDL Cholesterol, C alc 62 PSA Screen 1.56 1.44 [facility] Medical History History of colon polyps Chest discomfort Medicare annual wellness visit, initial Family history of pancreatic cancer Colon cancer screening Screening for diabetes mellitus (DM) Screening for diabetes mellitus (DM) Annual physical exam Annual physical exam Atherosclerotic cardiovascular disease Mild intermittent asthma Hyperlipidemia Surgical History Hx of endoscopy (~2000) Hx of colonoscopy (~2000) [place] teeth extracted Family History Father Heart problem, Onset Age: 65 Mother Diabetes Sister Pancreatic cancer Brother Pancreatic cancer Social History Housing: House Are you a primary care manager cna to a significant other at home: No Do you presently have visiting nurse or other home services: No Alcohol intake: former Patient Tobacco Use Status: Former Tobacco user e-Cigarette/Vaping Use: Never Used Second Hand Smoke Exposure: No Substance Use Type: Marijuana service: No Current occupational status: retired 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 1. Little interest or pleasure in doing things: not at all 2. Feeling down, depressed, or hopeless: not at all 3. Trouble falling or staying asleep, or sleeping too much: not at all 4. Feeling tired or having little energy: not at all 5. Poor appetite or overeating: not at all 6. Feeling bad about yourself - or that you are a failure or have let yourself or your family down: not at all 7. Trouble concentrating on things, such as reading the newspaper or watching television: not at all 8. Moving or speaking so slowly that other people could have noticed. Or the opposite - being so fidgety or restless that you have been moving around a lot more than usual: not at all 9. Thoughts that you would be better off or of hurting yourself in some way: not at all Total score: 0 Depression Screening Interpretation: Negative Depression Screening Done: Yes 43045 - PHQ-9 Billing: Yes Source: Developed by Drs. John Peters, Annia Esquivel, Wan Tobin and colleagues, with an educational nasir from [employer]. Thrive Questionnaire Date Thrive assessed: 05/15/24 I am a: Patient What is your living situation today?: I have a steady place to live Within the past 12 months, did the food you bought not last and you didn't have the money to get more?: Never true Within the past 12 months, did you worry whether your food would run out before you got money to buy more?: Never true Do you have trouble paying for medicines?: No Do you have trouble getting transportation to medical appointments?: No Do you have trouble paying your heating and electricity bill?: No Do you have trouble taking care of your child, family member or friend?: No Do you have trouble with day-to-day activities such as bathing, preparing meals, shopping, managing finances, etc.?: No Are you currently unemployed and looking for a job?: No Are you interested in more education?: No Please select the resources that you would like help with: None Currently or been in a relationship where the following occur: No concerns reported THRIVE Score: 0 AUDIT C Alcohol Use Questionnaire (AUDIT-C) 1. How often do you have a drink containing alcohol?: Never 3. How often do you have six or more drinks on one occasion?: Never Total Score: 0 TIMUR-7 AMB Questionnaire TIMUR-7 Date TIMUR - 7 assessed: 05/15/24 Feeling nervous, anxious, or on edge: 0 = Not at all Not being able to stop or control worryin = Not at all Worrying too much about different things: 0 = Not at all Trouble relaxin = Not at all Being so restless that it is hard to sit still: 0 = Not at all Becoming easily annoyed or irritable: 0 = Not at all Feeling afraid as if something awful might happen: 0 = Not at all Total TIMUR-7 score (0-4 normal; 5-9 mild; 10-14 moderate; 15-21 severe): 0 Source: Developed by Drs. John Peters, Wan Scottoenke and colleagues, with an educational nasir from [employer]. TIMUR-7 Assessment Billing TIMUR-7 Assessment Tool: TIMUR-7 Assessment 87938 Review of Systems Const Denies headache(s) Eyes Denies loss of vision ENT Denies vertigo, Denies dizziness, Denies headache(s) and Denies sore throat Card Denies chest pain, Denies leg edema and Denies lightheadedness Resp Denies cough, Denies hemoptysis and Denies wheezing GI Denies abdominal pain, Denies melena, Denies constipation, Denies diarrhea and Denies vomiting Denies dysuria, Denies urinary frequency and Denies urinary urgency Musc Denies arthralgias, Denies joint swelling, Denies numbness and Denies tingling Neuro Denies Abnormal speech present, Denies behavioral changes, Denies vertigo, Denies dizziness, Denies headache(s), Denies loss of vision, Denies memory loss, Denies numbness and Denies tingling Psych Denies anxiety, Denies behavioral changes, Denies depression, Denies memory loss and Denies panic attacks Lawrence/Lymph Denies easy bleeding and Denies easy bruising Aller/Immun Denies wheezing Physical exam (Primary Care) Vital Signs: Last Vital Signs Temp 97.3 F 05/15/24 10:36 Pulse 66 05/15/24 10:36 Resp 15 05/15/24 10:36 BP 130/80 05/15/24 10:36 Pulse Ox 98 05/15/24 10:36 Oxygen Delivery Method Room Air 05/15/24 10:36 BMI result Body Mass Index 30.6 Tobacco/Smoking Status: Tobacco use Status Tobacco use date assessed 05/15/24 05/15/24 10:41 Patient Tobacco Use Status Former Tobacco user 05/15/24 10:37 e-Cigarette/Vaping Use Never Used 05/15/24 10:37 PHQ-9: PHQ-9 Score PHQ-9: Total score 0 05/15/24 11:05 Depression Screening Interpretation: Negative Thrive Assessment: Date of Thrive Assessment Date Thrive assessed 05/15/24 05/15/24 10:41 Currently or been in a relationship where the following occur: No concerns reported Const General: healthy appearing, no acute distress, alert and awake Nutritional Appearance: well nourished Orientation/consciousness: oriented to person, oriented to place and oriented to time HENMT Ears: TM's normal bilaterally General nose exam: Normal nasal mucous membranes and turbinates present Eyes Conjunctivae: conjunctivae normal Sclerae: sclerae normal Pupils: Equal, round and reactive pupils present Neck Neck: Yes no lymphadenopathy and Yes no JVD Thyroid: Thyroid normal Carotids: no bruits Resp Effort & Inspection: normal respiratory effort and not tachypneic Auscultation: no crackles, no rales, no rhonchi and no wheezes Cardio Rate: regular rate Rhythm: regular rhythm Heart sounds: no murmurs and normal S1 and S2 GI Palpation (GI): Soft to palpation, nontender, no hepatomegaly and no splenomegaly Auscultation: normal bowel sounds Skin General skin exam: no rashes or lesions noted and dry skin Neuro General: oriented to person, oriented to place and oriented to time Cranial nerves: Yes Equal, round and reactive pupils present Speech: No Abnormal speech present Gait exam (Neuro): Normal gait present Motor exam (neuro): no tremor noted Extrem Right upper extremity: full ROM Left upper extremity: full ROM Right lower extremity: full ROM; no edema Left lower extremity: full ROM; no edema Psych Mental Status: mental status grossly normal Speech and movement: Normal speech and movement present Affect: normal affect Attitude: cooperative Thought process: Normal thought process present Coding Level of Care Code Est Pt Level 4 (29205) Diagnoses Heart failure with reduced ejection fraction I50.20 Mixed hyperlipidemia E78.2 Hyperlipidemia type: mixed hyperlipidemia Impaired glucose metabolism R73.09 Keratosis L57.0 Dry skin L85.3 Karina onychomycosis B37.2 Cardiomyopathy, unspecified type I42.9 Cardiomyopathy type: unspecified Skin lesion of face L98.9 Additional Codes TIMUR-7 Assessment Billing - TIMUR-7 Assessment Tool: TIMUR-7 Assessment 84050 ([id number]) PHQ-9 - 68812 - PHQ-9 Billing: Yes ([id number]) Assessment & Plan Assessment & Plan (1) Heart failure with reduced ejection fraction: Code(s): I50.20 - Unspecified systolic (congestive) heart failure Category: Medical Plan: patient followed by [facility]. He continues on interested though and most recent echocardiogram showing improved function. He continues to feel well and has less chest discomfort. (2) HLD (hyperlipidemia): Code(s): E78.5 - Hyperlipidemia, unspecified Category: Medical Qualifiers: Hyperlipidemia type: mixed hyperlipidemia Qualified Code(s): E78.2 - Mixed hyperlipidemia Plan: Patient continues on both Zetia and atorvastatin. Most recent lipid panel showing good control of his total cholesterol and LDL. Goal LDL optimally to be below 70. (3) Impaired glucose metabolism: Code(s): R73.09 - Other abnormal glucose Category: Medical Plan: Most recent fasting blood sugar showing slight elevation at 01:08. He will work on dietary modifications. (4) Keratosis: Code(s): L57.0 - Actinic keratosis Category: Medical Plan: Patient has multiple keratoses like skin lesions over his hands and face. Has had a lot of sun exposure. Will supply patient with topical ointment to use on problematic skin areas. Will refer to Dermatology for his full skin exam as he has high-risk for skin cancer. (5) Dry skin: Code(s): L85.3 - Xerosis cutis Category: Medical Plan: Advised to moisturize after showers (6) Karina onychomycosis: Code(s): B37.2 - Candidiasis of skin and nail Category: Medical Plan: Patient has pretty severe onychomycosis of the toenails. He would like to see Podiatry for nail grooming. (7) Cardiomyopathy: Code(s): I42.9 - Cardiomyopathy, unspecified Category: Medical Qualifiers: Cardiomyopathy type: unspecified Qualified Code(s): I42.9 - Cardiomyopathy, unspecified Plan: Again followed by [facility]. (8) Skin lesion of face: Code(s): L98.9 - Disorder of the skin and subcutaneous tissue, unspecified Category: Medical Plan: As per [facility] Orders: Orders Comprehensive [place]. Panel Fast Today R73.09 - Other abnormal glucose Lipid Panel Today E78.2 - Mixed hyperlipidemia Hemoglobin A1c Today R73.09 - Other abnormal glucose Complete Blood Count no Diff Today R73.09 - Other abnormal glucose Referrals Podiatry Referral B37.2 - Candidiasis of skin and nail Dermatology Referral L98.9 - Disorder of the skin and subcutaneous tissue, unspecified Medications: New triamcinolone acetonide 0.05% 1 appl topical DAILY 110 grams 1RF 30 days L57.0 - Actinic keratosis Patient Instructions: Goal: Blood pressure to remain below 140/90, LDL optimally to be below 70 :Barriers: Adherence to physical activity and healthy eating habits
--- OUTSIDE RECORDS SUMMARY | 2024-05-15 11:45 | XMS_ITS | Clinical Summary ---
Author Organization [facility] Address [address] [place] [address] Care Team Providers Care Insurance Verification Representative Name Role Phone Unavailable Primary Care Provider [...] patient is interested in the future Immunizations Immunization Administration Dates Next Due Flu, Cell Culture [...]
== END 2024-05-15 11:30 | disposition home or self-care (01) ==
LOC: HO.HMCH 10:30
PROVIDERS: PCP Physician Assistant; Visit Provider Physician Assistant
DX: I50.20 Unspecified systolic (congestive) heart failure (principal); I42.9 Cardiomyopathy, unspecified; E78.2 Mixed hyperlipidemia; R73.09 Other abnormal glucose; L57.0 Actinic keratosis; L85.3 Xerosis cutis; B37.2 Candidiasis of skin and nail; L98.9 Disorder of the skin and subcutaneous tissue, unspecified

== ENCOUNTER → 2024-05-15 10:30 | Outpatient (BNVA) | payer MEDICARE, SELFPAY | PROVIDERS: PCP Physician Assistant; Visit Provider Physician Assistant | DX: I50.20 Unspecified systolic (congestive) heart failure (principal); E78.2 Mixed hyperlipidemia; R73.09 Other abnormal glucose; L57.0 Actinic keratosis; L85.3 Xerosis cutis; B37.2 Candidiasis of skin and nail; I42.9 Cardiomyopathy, unspecified; L98.9 Disorder of the skin and subcutaneous tissue, unspecified | CPT/HCPCS: 96127; 99212 ==

== ENCOUNTER → 2024-10-25 10:55 | Outpatient (REF) | payer MEDICARE, SELFPAY ==
--- NOTE | 2024-10-25 11:03 | CA_ITS ---
Transthoracic Echocardiogram Patient (Last, First, Middle): Patricio Gale, Gender: Male Date of : 1955 Age: 69 Procedure Date: 10/25/2024 Procedure Type: Transthoracic Echocardiogram Location: OP Height: 177.8 cm Weight: 96.62 kg BSA: 2.14 m2 Heart Rate: 92 bpm BP: 130 / 80 mmHg Template Checker: SB Referring MD: Chicho Carlos MD Lead Ios Developer: Dago López MD Symptoms: I42.9 - Cardiomyopathy, unspecified Study Quality: Fair but adequate ECG Rhythm: Sinus Conclusions: - 1. Mildly reduced LV ejection fraction 45-50% with grade 1 diastolic dysfunction 2. Normal cardiac valvular Dopplers 3. No gross pericardial effusion Findings Procedure Information The quality of the study was technically difficult. The study quality is limited by lung artifact. Left Ventricle Normal left ventricular cavity size. There is normal left ventricular wall thickness. The left ventricular systolic function is mildly decreased. The visually estimated ejection fraction is between 45-50%. There is paradoxical septal motion consistent with a left bundle branch block. Spectral Doppler is indicative of an impaired relaxation filling pattern. E/E prime ratio is <8, consistent with normal filling pressures. Evidence suggests grade I (mild) diastolic dysfunction. Right Ventricle Normal right ventricular cavity size and systolic function. Atria Both atria are normal in size. There is no evidence of interatrial shunt. Aortic Valve Normal aortic valve structure and function. There is no aortic valve stenosis. There is no aortic valve regurgitation. Mitral Valve Normal mitral valve structure and function. There is trace mitral valve regurgitation. There is no mitral valve stenosis. Pulmonic Valve The pulmonic valve was not well visualized. Tricuspid Valve Likely normal tricuspid valve structure and function. Tricuspid regurgitation envelope is inadequate for calculation of right ventricular systolic pressure. Normal right atrial pressure. Great Vessels All visible segments of the aorta are normal in size. The pulmonary artery was not well visualized. There is no dilatation of the ascending aorta measuring 3.40 cm. Venous The inferior vena cava is normal in size and collapses greater than 50% with inspiration. Pericardium/Pleural There is no evidence of pericardial effusion. Prior Study Comparison No significant change compared to prior study dated: 10/29/2023. Measurements 2D Linear Measurements IVSd: 1.24 0.6-0.9/0.6-1.0 cm LVIDd: 4.47 3.9-5.3/4.2-5.9 cm LVIDd Index: 2.09 2.4-3.2/2.2-3.1 cm/m2 LVIDs: 3.28 2.0-3.6 cm LVPWd: 1.10 0.7-1.1 cm LA Diam: 3.20 2.7-3.8/3.0-4.0 cm LAIDs Index: 1.50 1.5-2.3 cm/m2 LV Mass: 235.57 67-162/88-224 g LV Mass Index: 110.08 43-95/49-115 g/m2 LVOT Diam: 2.00 3.0+(-)1.3 cm 2D Systolic Function EF 4C: 40.60 >55% EF 2C: 55.30 >55% EF BiP: 48.30 >55% Mitral Valve MV Pk E: 0.42 MV PK A: 0.49 MV Decel Time: 305.00 E/A: 0.90 E'Lateral: 5.11 E'Medial: 5.87 E/E' Med: 7.20 E/E' Lat: 8.20 PHT: 89.00 MVA PHT: 2.47 Decel Phelps: 1.38 Aortic Valve AoV Pk El: 1.27 AoV Pk Grad: 6.00 HORTENSIA: 2.56 LVOT LVOT Pk El: 1.08 LVOT Mn El: 0.77 LVOT VTI: 0.20 LVOT Pk Grad: 5.00 LVOT Mn Grad: 3.00 LVOT Diam: 2.00 LVOT Area: 3.14 Diastolic Function MV Pk E: 0.42 MV Pk A: 0.49 E/A: 0.90 E'Medial: 5.87 E/E' Med: 7.20 E' Laterial: 5.11 E/E' Lat: 8.20 Right Ventricle TAPSE (mm): 20.90 TVS' El: 12.30 Tricuspid Valve RA Press: 3.00 Great Vessels Aorta Sinus of Valsalva: 3.60 2.0-3.5 cm Ao Asc: 3.40 2.1-3.4 cm Pulmonary Valve PV Pk El: 0.96 Peak PV Grad: 4.00 Updated in Other Vendor System with Status of Final Dago López MD electronically signed on 10/26/2024 11:25:13 AM with status of Final
--- OUTSIDE RECORDS SUMMARY | 2024-10-25 13:53 | XMS_ITS | Clinical Summary ---
Author Organization [facility] Address [address] [place] [address] Care Team Providers Care Construction Supervisor/Carpenter Name Role Phone Unavailable Primary Care Provider [...] CONJUGATE PCV 13 04/14/2018 PNEUMOCOCCAL POLYSACCHARIDE PPV23 (Pneumovax 23) 12/18/2014 TDAP 12/18/2014 ZOSTER VACCINE, RECOMBINANT (SHINGRIX) [...] 59 08/22/2018 9:07 AM EDT Temperature 36.3 C (97.4 F) 08/22/2018 9:07 AM EDT Respiratory Rate - - Oxygen Saturation 94% 08/22/2018 9:07 AM EDT Inhaled Oxygen Concentration - - Weight 95.7 kg (211 lb) 08/22/2018 9:07 AM EDT Height 175.3 cm (5' 9 ) 02/22/2017 11:29 AM EST Body Mass Index 31.16 02/22/2017 11:29 AM EST Plan of Treatment Not on file Insurance [place]
== END ==
LOC: HO.CARD 10:55
PROVIDERS: PCP Physician Assistant; Visit Provider Internal Medicine
DX: I42.9 Cardiomyopathy, unspecified (principal)
CPT/HCPCS: 93306

== ENCOUNTER → 2024-10-25 11:03 | Outpatient (BNV) | payer MEDICARE, SELFPAY | PROVIDERS: PCP Physician Assistant; Visit Provider Internal Medicine Cardiovascular Disease | DX: I42.9 Cardiomyopathy, unspecified (principal) | CPT/HCPCS: 93306 ==

== ENCOUNTER 2024-11-09 13:22 | Outpatient (AMB) | payer MEDICARE, SELFPAY ==
--- NOTE | 2024-11-09 13:29 | A.OFFVIS_ITS ---
Vital Signs 11/09/24 13:30 Height 5 ft 10 in Weight 222 lb 10.67 oz BMI 31.9 BP 124/70 Blood Pressure Location Lt brachial Position Sitting Pulse 69 Pulse Source Monitor Intake Visit Reasons: 1 yr follow up Allergies nut - unspecified Allergy (Severe, Verified 05/15/24 11:04) Anaphylaxis Penicillins Allergy (Severe, Verified 05/15/24 11:04) Unknown Medication List - Last Reconciled 11/09/24 by Chicho Carlos MD albuterol sulfate 90 mcg/actuation 2 puffs inhalation Q6H PRN aspirin 81 mg PO DAILY atorvastatin 40 mg PO DAILY 90 days ezetimibe 10 mg PO DAILY lbpffkeskhgo-qvbjlxsf-wmvyyl 1 tab PO DAILY sacubitril-valsartan 24-26 mg (Entresto) 1 tab PO BID triamcinolone acetonide 0.05% 1 appl topical DAILY 30 days HPI Comments Details: Patricio returns for follow-up. Originally seen in consultation regarding cardiomyopathy. Echocardiogram and stress test were abnormal and hence he was referred here. Subsequently, he underwent coronary CTA as well. He states he is doing fine without any cardiac symptoms. No angina or shortness of breath or in fact anything cardiac sounding. Normal exercise tolerance without any limitations. Both his brother as well as sister had pancreatic cancer and passed. He used to be in [place] but now he lives locally. 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 [facility] Medical History History of colon polyps Chest discomfort Medicare annual wellness visit, initial Family history of pancreatic cancer Colon cancer screening Screening for diabetes mellitus (DM) Screening for diabetes mellitus (DM) Annual physical exam Annual physical exam Atherosclerotic cardiovascular disease Mild intermittent asthma Hyperlipidemia Surgical History Hx of endoscopy (~2000) Hx of colonoscopy (~2000) [place] teeth extracted Family History Father Heart problem, Onset Age: 65 Mother Diabetes Sister Pancreatic cancer Brother Pancreatic cancer Social History Housing: House Are you a primary healthcare recruiter to a significant other at home: No Do you presently have visiting nurse or other home services: No Alcohol intake: former Patient Tobacco Use Status: Former Tobacco user e-Cigarette/Vaping Use: Never Used Second Hand Smoke Exposure: No Substance Use Type: Marijuana service: No Current occupational status: retired 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 Cognitive needs: No Hearing needs: No Vision needs: No Review of Systems Const Denies weakness ENT Denies dizziness Card Denies chest pain, Denies chest pain with activity, Denies syncope, Denies rapid heart rate, Denies pedal edema, Denies edema, Denies leg edema, Denies lightheadedness, Denies palpitations, Denies dyspnea, Denies dyspnea on exertion and Denies orthopnea Resp Denies cough, Denies dyspnea and Denies dyspnea on exertion GI Denies hematochezia and Denies change in stool character Musc Denies abnormal gait, Denies muscle cramps, Denies muscle weakness, Denies numbness, Denies radiating pain into limb and Denies tingling Neuro Denies abnormal gait, Denies dizziness, Denies syncope, Denies numbness, Denies tingling and Denies weakness Endo Denies palpitations Physical Exam Vital Signs: Last Vital Signs Pulse 69 11/09/24 13:30 BP 124/70 11/09/24 13:30 BMI result Body Mass Index 31.9 Const General: comfortable and no acute distress Orientation/consciousness: patient oriented x3 HEENT Other: Unremarkable Head: Yes normal to inspection Neck Neck: Yes normal visual inspection Chest Chest palpation & inspection: normal inspection of the chest Resp Auscultation: clear to auscultation bilaterally Cardio Palpation: normal PMI Heart sounds: S1 normal heart sound present, S2 normal heart sound present, no gallops, no murmurs and no rubs GI Palpation (GI): Soft to palpation Back/Spine/Pelvis Other: unremarkable Skin General skin exam: no rashes or lesions noted Neuro General: patient oriented x3 Extrem General: Yes normal to inspection Psych Mental Status: mental status grossly normal Office Procedures EKG Details: EKG with underlying sinus rhythm at 69/Min; RI prolongation to 224 milliseconds; nonspecific intraventricular conduction defect. 52617-[id number], Complete Assessment & Plan Assessment & Plan (1) Cardiomyopathy: Code(s): I42.9 - Cardiomyopathy, unspecified Category: Medical Qualifiers: Cardiomyopathy type: unspecified Qualified Code(s): I42.9 - Cardiomyopathy, unspecified (2) LBBB (left bundle branch block): Code(s): I44.7 - Left bundle-branch block, unspecified Category: Medical (3) Atherosclerotic cardiovascular disease: Code(s): I25.10 - Atherosclerotic heart disease of [place] coronary artery without angina pectoris Category: Medical Plan Cardiac studies reviewed. EKG with left bundle-branch block initially identified in 2020 but of unknown chronicity. Initial echocardiogram with moderate LV systolic dysfunction with LVEF of 35- 40%. In the most recent study, LVEF is 45-50%. In the stress perfusion imaging study, somewhat suboptimal. Anterior/lateral wall thought to be normal but inferior/septal wall could not be assessed adequately. Coronary calcium score showed a total score of 656. Majority in the LAD. Some left main/RCA. In the CTA, distal left main/proximal LAD calcification but less than 40% stenosis. FFR is also negative. Otherwise unremarkable. Cardiac BNP is only 15. Overall, he has left bundle-branch block, cardiomyopathy, coronary disease. He is clinically asymptomatic. With regard to the cardiomyopathy, he can continue Entresto. Due to conduction system disease, not on beta-blockers. He has got no heart failure and hence no need for any other medications like Jardiance or diuretics. With regard to coronary disease, he is on statins and Zetia. Cholesterol is well controlled. He cannot tolerate higher dose of statins due to aches and pains. Follow up in one year. In the interim, he will call with any concerns. Discussion Notes During the visit, we discussed the patient's slightly reduced heart function as observed in the echocardiogram, reassuring him that no immediate intervention is necessary given his current asymptomatic status and ability to perform physical activities. Patient was informed and verbally consented to the use of an ambient scribe for clinic note documentation during this visit. Coding Level of Care Code Est Pt Level 4 (84871) Complex EM visit Add On G2211 Diagnoses Cardiomyopathy, unspecified type I42.9 Cardiomyopathy type: unspecified LBBB (left bundle branch block) I44.7 Atherosclerotic cardiovascular disease I25.10 CPT Codes EKG - CPT: 44433-[id number], Complete ([id number])
[2024-11-09 13:30] VITALS: BP 124/70; PULSE 69; BMI 31.9
--- OUTSIDE RECORDS SUMMARY | 2024-11-09 17:58 | XMS_ITS | Clinical Summary ---
Author Organization [facility] Address [address] [place] [address] Care Team Providers Care Duct Layer Helper Name Role Phone Unavailable Primary Care Provider [...]
== END 2024-11-09 13:56 | disposition home or self-care (01) ==
LOC: HO.HCS 13:23
PROVIDERS: PCP Physician Assistant; Visit Provider Internal Medicine
DX: I42.9 Cardiomyopathy, unspecified (principal); I44.7 Left bundle-branch block, unspecified; I25.10 Atherosclerotic heart disease of native coronary artery without angina pectoris
CPT/HCPCS: 93010; 99214; G2211

== ENCOUNTER → 2024-11-09 13:22 | Outpatient (BNVA) | payer MEDICARE, SELFPAY | PROVIDERS: PCP Physician Assistant; Visit Provider Internal Medicine | DX: I42.9 Cardiomyopathy, unspecified (principal); I44.7 Left bundle-branch block, unspecified; I25.10 Atherosclerotic heart disease of native coronary artery without angina pectoris; Z79.82 Long term (current) use of aspirin; Z87.891 Personal history of nicotine dependence | CPT/HCPCS: 93005; 99212 ==

== ENCOUNTER 2024-11-14 07:53 | Outpatient (REF) | payer MEDICARE, SELFPAY ==
--- OUTSIDE RECORDS SUMMARY | 2024-11-14 08:01 | XMS_ITS | Clinical Summary ---
Author Organization [facility] Address [address] [place] [address] Care Team Providers Care Social Services Specialist Name Role Phone Unavailable Primary Care Provider [...]
[2024-11-14 08:23] LABS: Hematocrit 40.7 % (42.0-52.0); Hemoglobin 13.9 g/dl (14.0-18.0); Mean Corpuscular HGB Conc 34.2 g/dl (31.0-36.0); Mean Corpuscular Hemoglobin 30.0 pg (27.0-33.0); Mean Corpuscular Volume 87.7 fL (80.0-98.0); NRBC Abs Auto 0.000 X10*3/uL (0.0-0.012); NRBC Pct Auto 0.0 /100WBC (0.0-0.2); Platelet Count 218 X10*3/uL (160-400); Red Blood Count 4.64 X10*6/uL (4.60-5.80); White Blood Count 6.6 X10*3/uL (4.8-10.8)
[2024-11-14 08:46] LABS: Albumin Level 4.2 g/dL (3.5-5.0); Alkaline Phosphatase 84 U/L (39-117); Anion Gap 10 (12-20); Aspartate Amino Transferase 66 U/L (5-37); Blood Urea Nitrogen 18 mg/dL (9-16); Calcium 9.0 mg/dL (8.4-10.2); Carbon Dioxide 23 mmol/L (22-29); Chloride 110 mmol/L (96-108); Cholesterol 116 mg/dL (<200); Estimated Glomerular Filt Rate > 60; HDL Cholesterol 36 mg/dL (>40); Potassium 4.2 mmol/L (3.3-5.1); Sodium 139 mmol/L (135-145); Total Protein 6.8 g/dL (6.5-8.0); Triglycerides 92 mg/dL (<150)
[2024-11-14 08:59] LABS: Alanine Aminotransferase 40 U/L (0-40)
== END 2024-11-14 07:54 | disposition home or self-care (01) ==
LOC: HO.LAB 07:53
PROVIDERS: PCP Physician Assistant; Visit Provider Physician Assistant
DX: R73.09 Other abnormal glucose (principal); E78.2 Mixed hyperlipidemia
CPT/HCPCS: 36415; 80053; 80061; 83036; 85027

== ENCOUNTER 2024-11-20 11:26 | Outpatient (AMB) | payer MEDICARE, SELFPAY ==
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
[2024-11-20 11:42] VITALS: BP 130/90; PULSE 68; TEMP 36.3; O2SAT 97; BMI 32.0
[2024-11-20 12:29] VITALS: BP 140/90
--- OUTSIDE RECORDS SUMMARY | 2024-11-20 14:06 | XMS_ITS | Clinical Summary ---
Author Organization [facility] Address [address] [place] [address] Care Team Providers Care Manager Balance Name Role Phone Unavailable Primary Care Provider [...]
== END 2024-11-20 12:37 | disposition home or self-care (01) ==
LOC: HO.HMCH 11:27
PROVIDERS: PCP Physician Assistant; Visit Provider Physician Assistant
DX: Z00.00 Encounter for general adult medical examination without abnormal findings (principal); M67.912 Unspecified disorder of synovium and tendon, left shoulder

== ENCOUNTER → 2024-11-20 11:26 | Outpatient (BNVA) | payer MEDICARE, SELFPAY | PROVIDERS: PCP Physician Assistant; Visit Provider Physician Assistant | DX: Z00.00 Encounter for general adult medical examination without abnormal findings (principal); I50.9 Heart failure, unspecified; E78.2 Mixed hyperlipidemia; R73.09 Other abnormal glucose; M67.912 Unspecified disorder of synovium and tendon, left shoulder; Z87.891 Personal history of nicotine dependence; Z79.899 Other long term (current) drug therapy | CPT/HCPCS: 96127 ==